=== PATIENT | female | born 1940 | race Caucasian/White ===

== ENCOUNTER → 2017-02-14 | Outpatient (CLI) | payer MEDICARE, BC, OTHER ==
--- NOTE | 2017-02-15 07:33 | MM ---
Reason for exam: screening (asymptomatic). Last mammogram was performed 1 year ago. History: Patient is postmenopausal. Took hormonal contraceptives for 6 months beginning at age 26. Took estrogen for 25 years beginning at age 39. Took progesterone for 25 years beginning at age 39. Physical Findings: A clinical breast exam by your physician is recommended on an annual basis and results should be correlated with mammographic findings. MG 3D Screening Mammo W/Cad Bilateral CC and MLO view(s) were taken. Prior study comparison: February 13, 2016, bilateral MG 3d screening mammo w/cad. February 10, 2015, bilateral MG screening mammo w CAD. There are scattered fibroglandular densities. No suspicious abnormality. ASSESSMENT: Negative, BI-RAD 1 RECOMMENDATION: Routine screening mammogram of both breasts in 1 year.
== END | disposition home or self-care (01) ==
LOC: RADMAMWWP 10:52
PROVIDERS: ATTEND Family Medicine
DX: Z12.31 Encounter for screening mammogram for malignant neoplasm of breast (principal)
CPT/HCPCS: 77063; G0202

== ENCOUNTER 2017-05-20 12:12 | Emergency (ER) | payer MEDICARE, BC, OTHER ==
--- NOTE | 2017-05-20 12:46 | ED ---
General Adult HPI - General Chief complaint: Upper Respiratory Infection Stated complaint: congestion Time Seen by Provider: 05/20/17 12:38 Source: patient Mode of arrival: ambulatory Limitations: no limitations - History of Present Illness Initial comments: Carmelina is a 76-year-old female who presents to the emergency department for evaluation of upper respiratory tract infection, fever and generalized fatigue. Patient reports that earlier this week she began feeling nasal congestion, rhinorrhea, sore throat, minimally productive cough, ear pressure. She reports that she had a subjective fever and decreased appetite. She reports that her illness was worse on and Saturday, she states that she felt so ill she did not want to get out of bed and she cannot come to hospital for evaluation. She reports that since that time she does feel that she's been improving minimally however she continues to have rhinorrhea, congestion and a minimally productive cough so she came to the emergency department for reevaluation. She reports she has not been eating or drinking well for for 5 days, for she has been most of her time in bed. She reports that she has nausea daily and this is unchanged recently, she has not had any vomiting or diarrhea. She denies any dysuria or urinary pain. She states her is very similar symptoms, however he did not seem to be as sick as she was. - Related Data Home Medications Medication Instructions Recorded Confirmed Lovastatin [Mevacor] 40 mg PO DAILY 02/08/14 05/20/17 Multivitamins, Thera [Multivitamin] 1 tab PO DAILY 02/08/14 05/20/17 Topiramate 100 mg PO BID 02/08/14 05/20/17 traMADol HCL [Ultram] 50 - 100 mg PO Q8H PRN 02/08/14 05/20/17 L.acidoph,Paracasei, B.lactis 1 cap PO DAILY 05/20/17 05/20/17 [Probiotic] Previous Rx's Medication Instructions Recorded Azithromycin 250 mg PO DAILY 4 Days #4 tablet 05/20/17 Allergies Allergy/AdvReac Type Severity Reaction Status Date / Time amitriptyline HCl Allergy "I GOT Verified 05/20/17 12:50 [From Elavil] SEVERE SHAKES ALL OVER" gatifloxacin [From Tequin] Allergy Unknown Verified 05/20/17 12:50 aspirin AdvReac UNABLE TO Verified 05/20/17 12:50 TAKE HX ULCERS TAPE AdvReac Unknown Uncoded 05/20/17 12:34 Review of Systems ROS Statement: Those systems with pertinent positive or pertinent negative responses have been documented in the HPI. ROS Other: All systems not noted in ROS Statement are negative. Constitutional: Reports: fever, chills, weight change Eyes: Reports: eye pain, eye discharge (Right eye erythematous). Denies: vision change ENT: Reports: ear pain, throat pain, congestion. Denies: dental pain, hearing loss, epistaxis Respiratory: Reports: cough. Denies: dyspnea, wheezes, hemoptysis Cardiovascular: Denies: chest pain, palpitations, dyspnea on exertion Endocrine: Reports: fatigue Gastrointestinal: Reports: nausea. Denies: abdominal pain, vomiting, diarrhea, constipation Genitourinary: Denies: urgency, dysuria Musculoskeletal: Reports: myalgia. Denies: back pain Skin: Denies: rash, lesions Neurological: Denies: headache, weakness Psychiatric: Denies: anxiety, depression Hematological/Lymphatic: Denies: easy bleeding, easy bruising Past Medical History Past Medical History: Hyperlipidemia, Osteoarthritis (OA) Additional Past Medical History / Comment(s): Mirgraine History of Any Multi-Drug Resistant Organisms: None Reported Past Surgical History: Hysterectomy, Joint Replacement, Tonsillectomy Additional Past Surgical History / Comment(s): left thumb, bilateral eye, hip Past Psychological History: No Psychological Hx Reported Smoking Status: Never smoker Past Alcohol Use History: None Reported Past Drug Use History: None Reported General Exam Limitations: no limitations General appearance: alert, other (Appears uncomfortable, nontoxic appearing) Head exam: Present: atraumatic, normocephalic Eye exam: Present: normal appearance, PERRL, EOMI, conjunctival injection ( Right eye with conjunctival injection, no purulent discharge noted). Absent: scleral icterus ENT exam: Present: mucous membranes moist, TM's normal bilaterally, other ( Posterior oropharynx injected noted to have postnasal drip) Neck exam: Present: normal inspection. Absent: lymphadenopathy Respiratory exam: Present: normal lung sounds bilaterally. Absent: respiratory distress Cardiovascular Exam: Present: regular rate, normal rhythm, tachycardia GI/Abdominal exam: Present: soft. Absent: distended Rectal exam: Present: deferred Extremities exam: Present: normal inspection Back exam: Present: normal inspection Neurological exam: Present: alert, oriented X3 Psychiatric exam: Present: anxious Skin exam: Present: warm, dry Course Vital Signs 05/20/17 05/20/17 12:28 14:00 Temperature 101.3 F H 100.6 F H Pulse Rate 117 H 90 Respiratory 18 20 Rate Blood Pressure 123/90 141/75 O2 Sat by Pulse 99 98 Oximetry Medical Decision Making - Medical Decision Making Patient was seen and evaluated Patient tachycardic and febrile - sepsis workup as well as influenza swab were ordered At this time I suspect the patient has a viral etiology of her illness Patient was reevaluated after IV fluids and medications, tachycardia resolved, fever has improved, patient reports feeling better Labs and no significant abnormalities, and is negative At this point I do feel the patient has a viral bronchitis as well as a conjunctivitis. However the patient does continue to rub her right eye and I do have concern that she will develop a bacterial conjunctivitis secondary to contamination. I will at this time prescribed a antibiotic eyedrops as well as azithromycin for possible bronchitis. This was explained to the patient who expresses significant relief. I discussed with the patient the need for oral rehydration therapy despite feeling ill as well as antipyretics for fever management. All questions pertaining to care were answered best of my ability the patient was discharged home with a diagnosis of bronchitis of viral illness. - Lab Data Result diagrams: 05/20/17 13:05 05/20/17 13:05 Lab Results 05/20/17 05/20/17 05/20/17 Range/Units 13:05 13:05 13:05 WBC 11.4 H (3.8-10.6) k/uL RBC 4.27 (3.80-5.40) m/uL Hgb 13.7 (11.4-16.0) gm/dL Hct 41.1 (34.0-46.0) % MCV 96.2 (80.0-100.0) fL MCH 32.1 (25.0-35.0) pg MCHC 33.4 (31.0-37.0) g/dL RDW 13.3 (11.5-15.5) % Plt Count 229 (150-450) k/uL Neutrophils % 81 % Lymphocytes % 11 % Monocytes % 7 % Eosinophils % 1 % Basophils % 0 % Neutrophils # 9.1 H (1.3-7.7) k/uL Lymphocytes # 1.3 (1.0-4.8) k/uL Monocytes # 0.7 (0-1.0) k/uL Eosinophils # 0.1 (0-0.7) k/uL Basophils # 0.0 (0-0.2) k/uL Sodium 141 (137-145) mmol/L Potassium 3.6 (3.5-5.1) mmol/L Chloride 105 (98-107) mmol/L Carbon Dioxide 23 (22-30) mmol/L Anion Gap 13 mmol/L BUN 12 (7-17) mg/dL Creatinine 1.10 H (0.52-1.04) mg/dL Est GFR (MDRD) Af Amer 59 (>60 ml/min/1.73 sqM) Est GFR (MDRD) Non-Af 48 (>60 ml/min/1.73 sqM) Glucose 112 H (74-99) mg/dL Plasma Lactic Acid Nate 1.2 (0.7-2.0) mmol/L Calcium 9.8 (8.4-10.2) mg/dL Total Bilirubin 0.5 (0.2-1.3) mg/dL AST 17 (14-36) U/L ALT 28 (9-52) U/L Alkaline Phosphatase 99 (38-126) U/L Total Protein 7.6 (6.3-8.2) g/dL Albumin 4.4 (3.5-5.0) g/dL Urine Color Urine Appearance (Clear) Urine pH (5.0-8.0) Ur Specific Breese (1.001-1.035) Urine Protein (Negative) Urine Glucose (UA) (Negative) Urine Ketones (Negative) Urine Blood (Negative) Urine Nitrite (Negative) Urine Bilirubin (Negative) Urine Urobilinogen (<2.0) mg/dL Ur Leukocyte Esterase (Negative) Urine RBC (0-5) /hpf Urine WBC (0-5) /hpf Ur Squamous Epith Cells (0-4) /hpf Urine Bacteria (None) /hpf Hyaline Casts (0-2) /lpf Urine Mucus (None) /hpf Influenza Type A RNA (Not Detectd) Influenza Type B (PCR) (Not Detectd) 05/20/17 05/20/17 Range/Units 13:05 14:41 WBC (3.8-10.6) k/uL RBC (3.80-5.40) m/uL Hgb (11.4-16.0) gm/dL Hct (34.0-46.0) % MCV (80.0-100.0) fL MCH (25.0-35.0) pg MCHC (31.0-37.0) g/dL RDW (11.5-15.5) % Plt Count (150-450) k/uL Neutrophils % % Lymphocytes % % Monocytes % % Eosinophils % % Basophils % % Neutrophils # (1.3-7.7) k/uL Lymphocytes # (1.0-4.8) k/uL Monocytes # (0-1.0) k/uL Eosinophils # (0-0.7) k/uL Basophils # (0-0.2) k/uL Sodium (137-145) mmol/L Potassium (3.5-5.1) mmol/L Chloride (98-107) mmol/L Carbon Dioxide (22-30) mmol/L Anion Gap mmol/L BUN (7-17) mg/dL Creatinine (0.52-1.04) mg/dL Est GFR (MDRD) Af Amer (>60 ml/min/1.73 sqM) Est GFR (MDRD) Non-Af (>60 ml/min/1.73 sqM) Glucose (74-99) mg/dL Plasma Lactic Acid Nate (0.7-2.0) mmol/L Calcium (8.4-10.2) mg/dL Total Bilirubin (0.2-1.3) mg/dL AST (14-36) U/L ALT (9-52) U/L Alkaline Phosphatase (38-126) U/L Total Protein (6.3-8.2) g/dL Albumin (3.5-5.0) g/dL Urine Color Light Yellow Urine Appearance Clear (Clear) Urine pH 6.5 (5.0-8.0) Ur Specific Breese 1.005 (1.001-1.035) Urine Protein Negative (Negative) Urine Glucose (UA) Negative (Negative) Urine Ketones Negative (Negative) Urine Blood Trace H (Negative) Urine Nitrite Negative (Negative) Urine Bilirubin Negative (Negative) Urine Urobilinogen <2.0 (<2.0) mg/dL Ur Leukocyte Esterase Large H (Negative) Urine RBC 4 (0-5) /hpf Urine WBC 72 H (0-5) /hpf Ur Squamous Epith Cells 1 (0-4) /hpf Urine Bacteria Rare H (None) /hpf Hyaline Casts 1 (0-2) /lpf Urine Mucus Rare H (None) /hpf Influenza Type A RNA Not Detected (Not Detectd) Influenza Type B (PCR) Not Detected (Not Detectd) Disposition Clinical Impression: Bronchitis Disposition: HOME SELF-CARE Condition: Good Instructions: Upper Respiratory Infection (ED) Prescriptions: Azithromycin 250 mg PO DAILY 4 Days #4 tablet Referrals: Ramana Martin DO [Primary Care Provider] - 1-2 days Time of Disposition: 14:38
[2017-05-20] MEDS: SODIUM CHLORIDE 0.9% 500 ML IV SCH ×2 (13:05→13:40)
[2017-05-20 13:22] LABS: Basophils % (A) 0 %; Eosinophils # (A) 0.1 k/uL (0-0.7); Eosinophils % (A) 1 %; HCT 41.1 % (34.0-46.0); HGB 13.7 gm/dL (11.4-16.0); Lymphocytes # (A) 1.3 k/uL (1.0-4.8); Lymphocytes % (A) 11 %; MCH 32.1 pg (25.0-35.0); MCHC 33.4 g/dL (31.0-37.0); MCV 96.2 fL (80.0-100.0); Mean Platelet Volume 7.3; Monocytes # (A) 0.7 k/uL (0-1.0); Monocytes % (A) 7 %; Neutrophils # (A) 9.1 k/uL (1.3-7.7); Neutrophils % (A) 81 %; Platelet Count 229 k/uL (150-450); RBC 4.27 m/uL (3.80-5.40); RDW 13.3 % (11.5-15.5); WBC 11.4 k/uL (3.8-10.6)
--- NOTE | 2017-05-20 13:34 | XR ---
EXAMINATION TYPE: XR chest 2V DATE OF EXAM: 05/20/2017 COMPARISON: NONE HISTORY: Fever TECHNIQUE: Frontal and lateral views of the chest are obtained. FINDINGS: Heart and mediastinum are normal. There is a hiatal hernia. Lungs are clear. There is no p leural effusion. There is spurring in the mid and lower thoracic spine. There are chest leads. IMPRESSION: Hiatal hernia. No active cardiopulmonary disease.
[2017-05-20 13:37] LABS: Albumin 4.4 g/dL (3.5-5.0); Calcium 9.8 mg/dL (8.4-10.2); Potassium 3.6 mmol/L (3.5-5.1); Total Bilirubin 0.5 mg/dL (0.2-1.3); Total Protein 7.6 g/dL (6.3-8.2)
[2017-05-20] MEDS ORDERED: POLYMYXIN B-TRIMETHOPRIM (10,000-1) OPHTH DROPS 10 ML BTL RIGHT EYE STA (14:36)
[2017-05-20] MEDS ORDERED: AZITHROMYCIN 500 MG TAB PO STA (14:37)
[2017-05-20 14:54] LABS: Appearance,Urine Clear (Clear); Bacteria,Urine Rare /hpf; Bilirubin,Urine Negative (Negative); Blood,Urine Trace (Negative); Color,Urine Light Yellow; Glucose,Urine (UA) Negative (Negative); Hyaline Casts,Urine 1 /lpf (0-2); Ketones,Urine Negative (Negative); Leukocyte Esterase,Urine Large (Negative); Mucus,Urine Rare /hpf; Nitrite,Urine Negative (Negative); PH, Urine 6.5 (5.0-8.0); Protein,Urine Negative (Negative); RBC,Urine 4 /hpf (0-5); Specific Gravity,Urine 1.005 (1.001-1.035); Squamous Epithelial Cell,Urine 1 /hpf (0-4); Urobilinogen,Urine <2.0 mg/dL (<2.0); WBC,Urine 72 /hpf (0-5)
[2017-05-20 15:19] VITALS: BP 128/74; PULSE 92; RESP 18; TEMP 100
== END 2017-05-20 15:13 | disposition home or self-care (01) ==
LOC: EC 12:12
DX: J40 Bronchitis, not specified as acute or chronic (principal); F41.9 Anxiety disorder, unspecified; H57.8 Other specified disorders of eye and adnexa; R00.0 Tachycardia, unspecified; J34.89 Other specified disorders of nose and nasal sinuses; R11.0 Nausea; E78.5 Hyperlipidemia, unspecified; Z79.899 Other long term (current) drug therapy; Z88.1 Allergy status to other antibiotic agents; Z88.6 Allergy status to analgesic agent; Z88.8 Allergy status to other drugs, medicaments and biological substances; Z91.09 Other allergy status, other than to drugs and biological substances; Z86.69 Personal history of other diseases of the nervous system and sense organs; Z98.890 Other specified postprocedural states
CPT/HCPCS: 36415; 71046; 80053; 81001; 83605; 85025; 87040; 87086; 87502; 93005; 96360; 99284

== ENCOUNTER → 2017-06-10 | Outpatient (CLI) | payer MEDICARE, BC, OTHER ==
--- NOTE | 2017-06-10 12:28 | FL ---
MODIFIED SWALLOW / DEGLUTITION STUDY DATE OF EXAM: 06/10/2017 CLINICAL HISTORY: 76-year-old female Dysphagia. Patient reports feeling sick to stomach and nauseous. TECHNIQUE: Deglutition study is performed utilizing thin liquid barium, honey and nectar thick liqui d barium, barium thick applesauce, and barium coated cracker. Total fluoroscopy time: 2.11 minutes. Total images: None saved, real-time fluoroscopy support was provided to speech pathology. COMPARISON: None. FINDINGS: The oral and pharyngeal phases show satisfactory initiation and propagation with all modalities teste d. Normal mastication is seen with solid modalities tested. There is no evidence of penetration or aspiration with any modality tested. However, there is poor clearance of the swallowed bolus from the cervical esophagus with intermittent intraesophageal reflux. Brief frontal fluoroscopy shows the patient's moderate sized hiatal hernia a nd poor propulsion of the swallowed bolus. No significant pharyngeal residue was appreciated. IMPRESSION: 1. Normal deglutition study. 2. However, there is poor clearance of the swallowed bolus from the cervical esophagus with intermitt ent intraesophageal reflux. While findings may relate to presbyesophagus, consider EGD or esophagram to exclude any abnormal narrowing or mucosal lesion contributing to this finding. Please refer to spe ech therapist notes for further details if necessary.
== END | disposition home or self-care (01) ==
LOC: RADFLMAIN 11:18
PROVIDERS: ATTEND Family Medicine
DX: K21.9 Gastro-esophageal reflux disease without esophagitis (principal)
CPT/HCPCS: 74230

== ENCOUNTER → 2017-06-13 | Outpatient (CLI) | payer MEDICARE, BC, OTHER ==
--- NOTE | 2017-06-13 15:59 | NM ---
EXAMINATION TYPE: NM hepatobiliary w EF DATE OF EXAM: 06/13/2017 COMPARISON: NONE HISTORY: Nausea pain TECHNIQUE: After the intravenous administration of 4.9 mCi Tc 99m Mebrofenin hepatobiliary scintigrap hy is performed. Immediate images post injection. FINDINGS: There is satisfactory initial accumulation of tracer by the liver. The gallbladder is visualized wit hin 60 minutes. The small bowel activity is noted within 20 minutes. At one hour 8 ounces of oral e nsure plus is given to mimic CCK and gallbladder ejection fraction is calculated at 75 %, in the norm al range. Therefore there is no scintigraphic evidence of cystic or common bile duct obstruction to suggest acute cholecystitis or gallbladder dyskinesia. IMPRESSION: Exam is within normal limits.
== END | disposition home or self-care (01) ==
LOC: RADNMMAIN 13:22
PROVIDERS: ATTEND Family Medicine
DX: R11.0 Nausea (principal)
CPT/HCPCS: 78226; A9537

== ENCOUNTER → 2017-06-20 | Outpatient (CLI) | payer MEDICARE, BC, OTHER ==
--- NOTE | 2017-06-20 11:12 | FL ---
EXAMINATION TYPE: FL barium swallow DATE OF EXAM: 06/20/2017 CLINICAL HISTORY: Dysphagia and nausea for one to 2 years with history of hiatal hernia. TECHNIQUE: A double contrast esophagram is performed utilizing air and barium. A total of 1.2 minut es of fluoroscopic time was utilized during procedure. 108 images were saved. COMPARISON: None FINDINGS: The esophagus shows normal motility and emptying into the partially intrathoracic stomach ( approximately 50%). No stricture is identified. Mild gastroesophageal reflux was seen during real justin e performance of this study although the gravity independent and dependent portions of the examinatio n from residual contrast within the partial intrathoracic stomach. IMPRESSION: Partial intrathoracic stomach of approximately 50% resulting in mild gastroesophageal ref lux from delayed propulsion of contrast through the hiatal hernia to the remainder of the stomach.
== END | disposition home or self-care (01) ==
LOC: RADFLWHC 10:09
PROVIDERS: ATTEND Family Medicine
DX: K44.9 Diaphragmatic hernia without obstruction or gangrene (principal); K21.9 Gastro-esophageal reflux disease without esophagitis
CPT/HCPCS: 74220

== ENCOUNTER → 2018-02-17 | Outpatient (CLI) | payer MEDICARE, BC, OTHER ==
--- NOTE | 2018-02-18 09:48 | MM ---
Reason for exam: screening (asymptomatic). Last mammogram was performed 1 year ago. History: Patient is postmenopausal. Took hormonal contraceptives for 6 months beginning at age 26. Took estrogen for 25 years beginning at age 39. Took progesterone for 25 years beginning at age 39. Physical Findings: A clinical breast exam by your physician is recommended on an annual basis and results should be correlated with mammographic findings. MG 3D Screening Mammo W/Cad Bilateral CC and MLO view(s) were taken. Prior study comparison: February 14, 2017, bilateral MG 3d screening mammo w/cad. February 13, 2016, bilateral MG 3d screening mammo w/cad. There are scattered fibroglandular densities. Finding: There is a 6 mm equal density (isodense) mass in the upper outer quadrant of the right breast. ASSESSMENT: Incomplete: need additional imaging evaluation, BI-RAD 0 RECOMMENDATION: Special view mammogram of the right breast. If lesion persists on supplemental views, image directed ultrasound is recommended. [facility] will attempt to contact patient to return for supplemental views and ultrasound if indicated.
== END | disposition home or self-care (01) ==
LOC: RADMAMWWP 10:56
PROVIDERS: ATTEND Family Medicine
DX: Z12.31 Encounter for screening mammogram for malignant neoplasm of breast (principal)
CPT/HCPCS: 77063; 77067

== ENCOUNTER → 2018-02-21 | Outpatient (CLI) | payer MEDICARE, BC, OTHER ==
--- NOTE | 2018-02-21 14:46 | MM ---
Reason for exam: additional evaluation requested from abnormal screening. Last mammogram was performed less than 1 month ago. History: Patient is postmenopausal. Took hormonal contraceptives for 6 months beginning at age 26. Took estrogen for 25 years beginning at age 39. Took progesterone for 25 years beginning at age 39. Physical Findings: Nurse did not find any significant physical abnormalities on exam. MG 3D Work Up W/Cad RT Spot compression CC, spot compression MLO, and ML view(s) were taken of the right breast. Prior study comparison: February 17, 2018, bilateral MG 3d screening mammo w/cad. February 14, 2017, bilateral MG 3d screening mammo w/cad. There are scattered fibroglandular densities. No definate mass/distortion. These results were verbally communicated with the patient and result sheet given to the patient on 02/21/18. ASSESSMENT: Probably benign, BI-RAD 3 RECOMMENDATION: Follow-up diagnostic mammogram of the right breast in 6 months.
== END ==
LOC: RADMAMWWP 13:43
PROVIDERS: ATTEND Family Medicine
DX: R92.8 Other abnormal and inconclusive findings on diagnostic imaging of breast (principal)
CPT/HCPCS: 77065; G0279; 77061

== ENCOUNTER → 2018-09-30 | Outpatient (CLI) | payer MEDICARE, BC, OTHER ==
--- NOTE | 2018-09-30 12:53 | US ---
EXAMINATION TYPE: US bladder DATE OF EXAM: 09/30/2018 COMPARISON: 12/27/2014 CLINICAL HISTORY: 78-year-old female N18.3 CKD Stage 3. Patient stated that she does not fully empty bladder TECHNIQUE: Multiple sonographic images of the bladder are obtained. FINDINGS: No gross abnormality of the initially partially distended bladder. Both ureteral jets are visualized of the right jet was slightly weaker. Post Void Residual Volume: 11.0 mL (normal <50 mL). This is in comparison to 9 mL residual volume in 2014. IMPRESSION: Post void bladder volume of 11 mL is within acceptable limits. No sonographic evidence for urinary re tention. Relatively similar to 2014.
--- NOTE | 2018-09-30 13:37 | MM ---
Reason for exam: additional evaluation requested from prior study. Last mammogram was performed 7 months ago. History: Patient is postmenopausal. Took hormonal contraceptives for 6 months beginning at age 26. Took estrogen for 25 years beginning at age 39. Took progesterone for 25 years beginning at age 39. Physical Findings: Nurse did not find any significant physical abnormalities on exam. MG 3D Diag Mammo W/Cad RT CC and MLO view(s) were taken of the right breast. Prior study comparison: February 21, 2018, right breast MG 3d work up w/cad RT. February 17, 2018, bilateral MG 3d screening mammo w/cad. The breast tissue is heterogeneously dense. This may lower the sensitivity of mammography. The previously seen abnormality resolves on additional views and appears as fibroglandular tissue compatible with summation. No suspicious abnormality. These results were verbally communicated with the patient and result sheet given to the patient on 09/30/18. ASSESSMENT: Benign, BI-RAD 2 RECOMMENDATION: Return to routine screening mammogram schedule for both breasts. Back on schedule for February 2019.
== END | disposition home or self-care (01) ==
LOC: RADUSWWP 12:07
PROVIDERS: ATTEND Family Medicine
DX: R92.8 Other abnormal and inconclusive findings on diagnostic imaging of breast (principal); N18.3 Chronic kidney disease, stage 3 (moderate)
CPT/HCPCS: 77065; 76857; G0279; 77061

== ENCOUNTER → 2019-03-12 | Outpatient (CLI) | payer MEDICARE, BC, OTHER ==
--- NOTE | 2019-03-13 13:24 | MM ---
Reason for exam: screening (asymptomatic). Last mammogram was performed 5 months ago. History: Patient is postmenopausal. Took hormonal contraceptives for 6 months beginning at age 26. Took estrogen for 25 years beginning at age 39. Took progesterone for 25 years beginning at age 39. Physical Findings: A clinical breast exam by your physician is recommended on an annual basis and results should be correlated with mammographic findings. MG 3D Screening Mammo W/Cad Bilateral CC and MLO view(s) were taken. Prior study comparison: September 30, 2018, right breast MG 3d diag mammo w/cad RT. February 21, 2018, right breast MG 3d work up w/cad RT. There are scattered fibroglandular densities. There are benign appearing round linear calcifications in the right breast. There is no discrete abnormality. ASSESSMENT: Benign, BI-RAD 2 RECOMMENDATION: Routine screening mammogram of both breasts in 1 year.
== END | disposition home or self-care (01) ==
LOC: RADMAMWWP 12:38
PROVIDERS: ATTEND Family Medicine
DX: Z12.31 Encounter for screening mammogram for malignant neoplasm of breast (principal)
CPT/HCPCS: 77063; 77067

== ENCOUNTER → 2019-07-09 | Outpatient (CLI) | payer MEDICARE, BC, OTHER ==
[2019-07-09 15:01] LABS: HGB 12.7 gm/dL (11.4-16.0); MCH 31.4 pg (25.0-35.0); MCHC 31.7 g/dL (31.0-37.0); Mean Platelet Volume 7.3; Platelet Count 198 k/uL (150-450); RBC 4.04 m/uL (3.80-5.40); RDW 13.1 % (11.5-15.5)
[2019-07-09 15:13] LABS: Albumin 4.1 g/dL (3.5-5.0); Calcium 9.6 mg/dL (8.4-10.2); Potassium 4.1 mmol/L (3.5-5.1); Total Bilirubin 0.4 mg/dL (0.2-1.3); Total Protein 6.8 g/dL (6.3-8.2)
[2019-07-09 16:09] LABS: INR 0.9 (<1.2); Partial Thromboplastin Time 22.2 sec (22.0-30.0); Prothrombin Time 9.9 sec (9.0-12.0)
== END | disposition home or self-care (01) ==
LOC: LABPAT 14:15
PROVIDERS: ATTEND Orthopaedic Surgery
DX: Z01.812 Encounter for preprocedural laboratory examination (principal); M16.11 Unilateral primary osteoarthritis, right hip; Z51.81 Encounter for therapeutic drug level monitoring
CPT/HCPCS: 80053; 85027; 85610; 85730; 87070

== ENCOUNTER 2019-07-20 07:45 | Day surgery (SDC) | payer MEDICARE, OTHER ==
[2019-07-13 13:13] VITALS: BMI 25.1
[~2019-07-20 07:45] MED LIST: ACETAMINOPHEN TAB 500 MG TAB PO ONE; GABAPENTIN 300 MG CAP PO ONE; LACTATED RINGERS 1,000 ML IV SCH; MELOXICAM 7.5 MG TAB PO ONE; ONDANSETRON 4 MG/2 ML VIAL IVP ONE; ROPIVACAINE 246.25 MG, EPINEPHrine 0.5 MG, KETOROLAC 30 MG, cloNIDine HCL/PF 80 MCG, WA... MISCELLANE ONE; TRANEXAMIC ACID 1,000 MG in SODIUM CHLORIDE 0.9% 100 ML IVPB ONE
[2019-07-20] MEDS ORDERED: LACTATED RINGERS 1,000 ML IV ONE ×2 (08:06→10:48)
[2019-07-20] MEDS ORDERED: LACTATED RINGERS 1,000 ML BAG IV ONE (09:12)
[2019-07-20] MEDS ORDERED: ROCURONIUM BROMIDE 10 MG/ML 5 ML VIAL IV ONE (09:12)
[2019-07-20] MEDS ORDERED: LIDOCAINE 1% INJ 10MG/ML (20 ML MDV) ONE (09:12)
[2019-07-20] MEDS ORDERED: fentaNYL (PF) 50 MCG/ML 2 ML AMP ONE (09:12)
[2019-07-20] MEDS ORDERED: TRANEXAMIC ACID 1,000 MG/10 ML VIAL ONE (09:12)
[2019-07-20] MEDS ORDERED: GLYCOPYRROLATE 0.2 MG/ML 2 ML VIAL ONE (09:12)
[2019-07-20] MEDS ORDERED: SUCCINYLCHOLINE CHLORIDE 100 MG/5 ML SYR IV ONE (09:12)
[2019-07-20] MEDS ORDERED: PROPOFOL 10 MG/ML 20 ML VIAL IV ONE (09:12)
[2019-07-20] MEDS ORDERED: HEPARIN SODIUM,PORCINE 10,000 UNIT/ML 1 ML VIAL ONE (09:12)
[2019-07-20] MEDS ORDERED: MIDAZOLAM 2 MG/2 ML VIAL ONE (09:12)
[2019-07-20] MEDS ORDERED: NEOSTIGMINE 1 MG/ML 10 ML VIAL ONE (09:12)
[2019-07-20] MEDS ORDERED: SODIUM CHLORIDE 0.9% 100 ML BAG ONE (09:12)
[2019-07-20] MEDS ORDERED: ceFAZolin 3,000 MG in SODIUM CHLORIDE 0.9% IRRIGATIO 3,000 ML IRRIGATION ONE (09:17)
--- NOTE | 2019-07-20 10:23 | P.OP ---
Date of Procedure: 07/20/19 Preoperative Diagnosis: Severe osteoarthritis right hip Postoperative Diagnosis: Severe osteoarthritis right hip Procedure(s) Performed: Right total hip arthroplasty with a direct anterior approach Implants: Ogden [employer] nephew Polarstem size 3 standard [employer]hew R3, 3 hole acetabular shell, 52 mm [employer]hew reflection 6.5 mm cancellus screw, 20 mm 2 [employer] R3, XLPE 20 acetabular liner [employer]hew Oxinium femoral head 36 m, +4 All components were press-fit. The articulation is Oxinium on polyethylene. Anesthesia: spinal Surgeon: Beau Martins Teaching Music Lessons #1: Corinne Carvajal Estimated Blood Loss (ml): 400 (181 mL returned with Cell Saver) Pathology: other (Femoral head) Condition: stable Disposition: PACU Indications for Procedure: After failure of conservative treatment we discussed the surgical and nonsurgical treatment options at length. Patient wishes to proceed with a total hip arthroplasty with a direct anterior approach. Complications specific to this procedure were discussed at length, including but not limited to infection, leg length discrepancy, dislocation, and nerve injury. Patient is aware of all these complications and informed consent was obtained Operative Findings: The operative findings are consistent with severe osteoarthritis of the right hip Description of Procedure: Patient was seen and evaluated in the preoperative area, consent was reviewed, and the surgical site was marked with a skin marker. Patient was then brought to the operating room and given prophylactic antibiotics intravenously. 1 g of Tranexamic acid was also given. A spinal anesthetic was administered by the anesthesia department. The patient was then placed on the [place] table with the bony prominences well-padded. The hip area was then prepped and draped in usual sterile fashion. A universal timeout was then performed, which confirmed the patient's name, surgical site, ALLERGIES, and procedure being performed. Next the incision site was located at 1 cm distal and 1 cm lateral to the anterior superior iliac spine. The skin and subcutaneous tissues were sharply incised. Incision was carefully dissected down to the fascia overlying the tensor fascia vickey muscle. This fascia was then incised in line with the incision. Next, using blunt finger dissection, the tensor fascia vickey muscle was dissected off its investing fascia. The muscle was then carefully retracted laterally with a cobra retractor over the lateral neck of the femur. Next, the circumflex vessels were identified and cauterized using the AquaMantis device. The anterior hip capsule was then exposed. The capsule was then opened and an inverted T fashion. Cobra retractors were then placed intracapsularly. The proximal femur was then vis ualized. The femoral neck was then osteotomized appropriate level above the lesser trochanter. Small amount of traction was placed with the [place] table. A small wedge of bone was then removed from the remaining femoral head. Next, using a corkscrew femoral head was easily removed from the acetabulum. On gross visual inspection, the femoral head had complete loss of articular cartilage in multi ple periarticular osteophytes. Attention was then turned to the acetabulum. the acetabulum was exposed and any remaining labrum was excised. Sequential reaming of the acetabulum was performed using fluoroscopic guidance. When the appropriate size was reached, a trial was then placed. The position and fit of the trial was checked with fluoroscopy. The trial was then removed. Then, using fluoroscopic guidance, the final implant was impacted at 20 of anteversion and 40 of abduction, and fully seated in the acetabulum. 2 screws were then placed in the acetabulum. Again fluoroscopy was used to check position of the screws. Next, the liner was then impacted, with a 20 elevated liner located in the anterior superior quadrant. Component locking was confirmed. Attention was then directed to the femur. With the aid of the [place] table, the femur was externally rotated to approximately 130, extended, and abducted under the opposite leg. A side hook was then placed under the proximal femur, and the side hook elevator was used to elevate the proximal femur. Retractors were then placed. A capsular release was performed, as well as a release of the conjoined tendon, which afforded excellent visualization of the proximal femur. Next, a box osteotome was used to lateralize the proximal femur. A certified shorthand reporter was then used to locate the femoral canal. Sequential broaching was then performed with appropriate size which afforded excellent fixation in the proximal femur. A trial was then placed with appropriate head and neck, and the hip was gently reduced with the aid of the [place] table. Fluoroscopy was then used to check position of the components, as well as to ensure equal leg lengths. The hip was then gently dislocated and the trials were then removed. Final implants were then impacted and the hip was again reduced. Final fluoroscopic x-rays confirmed that the components were in anatomic position, as well as equal leg lengths. The hip was also taken through range of motion, and found to be stable. The hip was then copiously irrigated with antibiotic solution with pulsatile lavage. The hip was then irrigated with Irrisept solution. The soft tissues were then injected with a ropivacaine solution, which consisted of 246.25 mg of ropivacaine, 0.5 mg of epinephrine, 30 mg of Toradol, 80 g of clonidine, and 48.45 mL of sterile water, for a total of 100 mL of fluid injected. A second dose of 1 g of Tranexamic acid was also given. the fascia was then closed with 2-0 strata fix suture. The subcutaneous tissue was closed with 3-0 Vicryl. The subcuticular tissue was closed with 3-0 strata fix suture. The skin was then closed with Dermabond glue and a sterile silver dressing. The patient was then transferred to the recovery room in stable condi tion. The assistant operations manager SHADIA Dc was required due to the complexity of surgery, and the need for skilled surgical technology instructor for positioning, draping, exposure, retraction, and closure of the wound.
--- NOTE | 2019-07-20 10:44 | FL ---
EXAMINATION TYPE: FL guidance operating room, XR Hip Limited RT DATE OF EXAM: 07/20/2019 CLINICAL HISTORY: Right hip pain and osteoarthritis. TECHNIQUE: Fluoroscopy. Limited views right hip. COMPARISON: None. FINDINGS: Fluoroscopic guidance was provided during hip replacement procedure performed by Dr. Lance hyde. A total of 44 seconds of fluoroscopic time was utilized during the procedure and 2 spot images are saved to PACS. 2 intraoperative images right hip show metallic hardware from total arthroplasty satisfactory in posi tion on frontal view. IMPRESSION: As Above.
[2019-07-20] MEDS ORDERED: NALOXONE 0.4 MG/ML 1 ML VIAL IV PRN (10:58)
[2019-07-20] MEDS ORDERED: MAGNESIUM HYDROXIDE 2,400 MG/10 ML CUP PO PRN (10:58)
[2019-07-20] MEDS ORDERED: ACETAMINOPHEN TAB 325 MG TAB PO PRN (10:58)
[2019-07-20] MEDS ORDERED: HYDROcodone/APAP 5-325MG 1 EACH TAB PO PRN (10:58)
[2019-07-20] MEDS ORDERED: ONDANSETRON 4 MG/2 ML VIAL IVP PRN (10:58)
[2019-07-20] MEDS ORDERED: HYDROmorphone 0.5 MG/0.5 ML SYRINGE IVP PRN ×2 (10:58)
[2019-07-20] MEDS: HYDROmorphone 0.5 MG/0.5 ML SYRINGE IVP PRN ×4 (11:04→21:02)
[2019-07-20] MEDS ORDERED: diphenhydrAMINE 50 MG/ML 1 ML VIAL IVP ONE (11:12)
--- NOTE | 2019-07-20 11:55 | XR ---
EXAMINATION TYPE: XR Hip Limited RT DATE OF EXAM: 07/20/2019 CLINICAL HISTORY: Right hip pain and osteoarthritis. TECHNIQUE: Single AP portable view of right hip is obtained immediately postoperatively. COMPARISON: None. FINDINGS: Metallic hardware from right hip arthroplasty is seen and appears satisfactory in alignment and position. There is evidence of recent surgery with subcutaneous gas noted laterally. IMPRESSION: Metallic hardware from right hip arthroplasty is satisfactory in position.
[2019-07-20] MEDS: LACTATED RINGERS 1,000 ML IV SCH ×2 (16:06→21:39)
[2019-07-20] MEDS: TOPIRAMATE 100 MG TAB PO SCH (20:14)
[2019-07-20] MEDS: NITROFURANTOIN MONOHYD/M-CRYST 100 MG CAP PO SCH (20:14)
[2019-07-20] MEDS ORDERED: SENNOSIDES-DOCUSATE SODIUM 1 EACH TAB PO SCH (21:00)
[2019-07-20] MEDS ORDERED: ATORVASTATIN 10 MG TAB PO SCH (21:00)
[2019-07-20] MEDS ORDERED: TEMAZEPAM 15 MG CAP PO PRN (21:00)
--- NOTE | 2019-07-21 | CONS ---
CONSULTATION DATE OF SERVICE: 07/20/2019 REASON FOR CONSULTATION: Advice regarding hyperlipidemia and other medical issues, requested by Dr. Martins. HISTORY OF PRESENT ILLNESS: This 78-year-old woman with a past medical history of multiple medical problems, including history of hearing defects, hyperlipidemia, history of DJD, being followed by Dr. Martin in the outpatient setting, underwent right total hip joint arthroplasty for severe DJD by Dr. Martins. The patient is slightly drowsy after surgery; only giving a sketchy history. Most of the history is taken from my discussion with staff at the bedside review of the chart. There is no history of any fever, rigor or chills. No history of chest pain, palpitations hematochezia. Occasional cough is reported at this time. PAST MEDICAL HISTORY: History of hyperlipidemia, history of DJD, history of back surgery, hysterectomy. HOME MEDICATIONS: 1. Nitrofurantoin 100 mg p.o. b.i.d. 2. Mevacor 40 mg at bedtime. 3. Ultram p.r.n. 4. Topamax 100 mg p.o. b.i.d. 5. Multivitamins one p.o. daily. 6. Vitamin K with vitamin D3, local application. 7. Probiotic 1 p.o. daily. 8. Fish oil daily. 9. Senokot-S 1 tablet p.o. b.i.d. 10.Xarelto 10 mg p.o. daily. 11.[place]issa 1-2 tabs q.4 to 6 p.r.n. ALLERGIES: AMITRIPTYLINE, TEQUIN, ASPIRIN. TAPE. FAMILY HISTORY: History of cancer in the family. SOCIAL HISTORY: No history of smoking. No history of alcohol intake. REVIEW OF SYSTEMS: ENT: No diminished hearing. No diminished vision. CARDIOVASCULAR SYSTEM: No angina, palpitations. RESPIRATORY SYSTEM: As mentioned earlier. GI: As mentioned earlier. : No dysuria or retention. NERVOUS SYSTEM: No numbness, weakness. ALLERGY/IMMUNOLOGY: No asthma, hayfever. MUSCULOSKELETAL: As mentioned earlier. HEMATOLOGY/ONCOLOGY: No history of anemia. ENDOCRINE: No history of diabetes, hypothyroidism. CONSTITUTIONAL: As mentioned earlier. DERMATOLOGY: Negative. RHEUMATOLOGY: Negative. PSYCHIATRY: As mentioned earlier. PHYSICAL EXAMINATION: Patient alert and oriented x3. Pulse is 107, blood pressure 87/56, respiration 18, temperature 97.5, pulse ox 98% on room air. HEENT: Conjunctivae normal. Oral mucosa moist. NECK: No jugular venous distention. No carotid bruit. No lymph node enlargement. CARDIOVASCULAR SYSTEM: S1, S2 muffled. RESPIRATORY SYSTEM: Breath sounds diminished at the bases. No rhonchi. No crackles. ABDOMEN: Soft, non-tender. No mass palpable. LEGS: Status post right total hip joint arthroplasty. NERVOUS SYSTEM: Higher functions as mentioned earlier. Moves all 4 limbs. No focal motor or sensory deficit. LYMPHATICS: No lymph node palpable in neck, axillae or groin. SKIN: No ulcer, rash, bleeding. JOINTS: As mentioned earlier. LABS: The preoperative labs are hematology, CBC within normal limits. Otherwise, coags are normal. Chemistry panel done prior to surgery showed the electrolyte are also within normal limits. Creatinine was 1.05. ASSESSMENT: 1. Status post right total hip joint arthroplasty for severe degenerative joint disease. 2. Increased creatinine previously. 3. Relative hypotension. 4. Hyperlipidemia. 5. History of hard of hearing. 6. History of degenerative joint disease. 7. History of colon polyps. 8. Migraine. 9. Back surgery. 10.History of degenerative joint disease. 11.History of rectocele repair. 12.FULL CODE. RECOMMENDATIONS AND DISCUSSION: In this 78-year-old woman who presented after surgery, at this time I recommend to continue the current medications, continue with symptomatic treatment. Repeat labs in the morning. I would also recommend continuing with IV fluids. Otherwise, we will monitor the patient closely. Symptomatic treatment. DVT prophylaxis. Proton pump inhibitors. The patient may be asked to follow up with Dr. Martin closely after discharge. Thank you, Dr. Martins, for letting us participate in the care of this patient. MMODL / IJN: [id number] / [facility]
[2019-07-21] MEDS: HYDROcodone/APAP 5-325MG 1 EACH TAB PO PRN ×2 (00:07→07:43)
[2019-07-21] MEDS ORDERED: PANTOPRAZOLE 40 MG TABLET PO SCH (07:30)
[2019-07-21] MEDS: NITROFURANTOIN MONOHYD/M-CRYST 100 MG CAP PO SCH (07:43)
[2019-07-21] MEDS: TOPIRAMATE 100 MG TAB PO SCH (07:43)
[2019-07-21 08:02] VITALS: BP 118/69; PULSE 99; RESP 17; TEMP 98.3
[2019-07-21 08:24] LABS: Calcium 8.9 mg/dL (8.4-10.2); Potassium 3.9 mmol/L (3.5-5.1)
[2019-07-21 08:35] LABS: Basophils % (A) 0 %; Eosinophils # (A) 0.1 k/uL (0-0.7); Eosinophils % (A) 1 %; HCT 28.9 % (34.0-46.0); Lymphocytes # (A) 1.6 k/uL (1.0-4.8); Lymphocytes % (A) 19 %; MCH 31.7 pg (25.0-35.0); MCHC 31.9 g/dL (31.0-37.0); MCV 99.2 fL (80.0-100.0); Mean Platelet Volume 7.9; Monocytes # (A) 0.5 k/uL (0-1.0); Monocytes % (A) 6 %; Neutrophils # (A) 6.4 k/uL (1.3-7.7); Neutrophils % (A) 74 %; Platelet Count 180 k/uL (150-450); RBC 2.92 m/uL (3.80-5.40); RDW 12.9 % (11.5-15.5); WBC 8.6 k/uL (3.8-10.6)
[2019-07-21 08:37] LABS: HGB 9.2 gm/dL (11.4-16.0)
[2019-07-21] MEDS ORDERED: NON FORMULARY DRUG (Fish Oil/Dha/Epa [Fish Oil 1,200 Mg Fish Oil] 1 EACH) PO SCH (09:00)
[2019-07-21] MEDS ORDERED: LACTOBACILLUS ACIDOPH & BULGAR 1 EACH PACKET PO SCH (09:00)
[2019-07-21] MEDS ORDERED: [UNRECOGNIZED DRUG - MIXTURE] PO SCH (09:00)
[2019-07-21] MEDS ORDERED: RIVAROXABAN 10 MG TAB PO SCH (09:00)
[2019-07-21] MEDS ORDERED: MULTIVITAMINS, THERA 1 EACH TAB PO SCH (09:00)
--- NOTE | 2019-07-21 13:50 | P.DS ---
Providers Expected date of discharge: 07/21/19 Attending physician: Beau Martins Consults: 07/20/19 10:58 Consult Physician Routine Consulting Provider: Ming Garcia Consult Reason/Comments: Medical management Do you want consulting provider notified?: Yes Primary care physician: [facility] Hospital Course: This is a 78-year-old female who was last seen in our office with complaint of continued right hip pain. The patient has a known history of degenerative arthritis of the right hip and presents to discuss surgical options. After discussion and consideration the patient elects to proceed with total right hip arthroplasty. She is seen preoperatively by her family physician and cleared for surgery. The patient is admitted to [facility] for total right hip arthr oplasty. The procedure is performed without complication or sequelae. The patient is doing well on postoperative day #1. Vital signs and postoperative labs are stable. On exam, patient is sitting in bedside chair in no acute distress. She is alert and orientated x3. On inspection of the right hip, there is a clean, dry, intact surgical dressing in place. Mild ecchymosis surrounding the dressing. There is no drainage on the dressing. Patient has good strength and motion of the right ankle. No pain on palpation of the calf. The right lower extremity is warm and well-perfused with brisk capillary refill distally. Dorsalis pedis pulse palpable. Motor and sensory function appeared intact of the right lower extremity. Vital signs stable. The patient is discharged to home today with home health services, pending medical clearance, in good condition. Please see discharge orders. Please refer to the med rec for accurate list of medications. Patient Condition at Discharge: Fair Plan - Discharge Summary Discharge Rx Participant: Yes New Discharge Prescriptions: New HYDROcodone/APAP 5-325MG [[place] 5-325] 1 - 2 each PO Q4-6H PRN #50 tab PRN Reason: Pain Sennosides-Docusate Sodium [Senokot-S] 1 tab PO BID #60 tablet Rivaroxaban [Xarelto] 10 mg PO DAILY #30 tab Ferrous Sulfate [Feosol] 325 mg PO BID #60 tab Continue Multivitamins, Thera [Multivitamin (formulary)] 1 tab PO DAILY Topiramate 100 mg PO BID Lovastatin [Mevacor] 40 mg PO HS L.acidoph,Paracasei, B.lactis [Probiotic] 1 cap PO DAILY Liquidvitamin D3 And Vitamin K 1 applic PO DAILY Fish Oil/Dha/Epa [Fish Oil 1,200 mg Fish Oil] 1 each PO DAILY Nitrofurantoin Monohyd/M-Cryst [Macrobid] 100 mg PO Q12HR Discontinued traMADol HCL [Ultram] 50 - 100 mg PO Q8H PRN PRN Reason: Pain Discharge Medication List Lovastatin [Mevacor] 40 mg PO HS 02/08/14 [History] Multivitamins, Thera [Multivitamin (formulary)] 1 tab PO DAILY 02/08/14 [History] Topiramate 100 mg PO BID 02/08/14 [History] L.acidoph,Paracasei, B.lactis [Probiotic] 1 cap PO DAILY 05/20/17 [History] Fish Oil/Dha/Epa [Fish Oil 1,200 mg Fish Oil] 1 each PO DAILY 01/13/18 [History] Liquidvitamin D3 And Vitamin K 1 applic PO DAILY 01/13/18 [History] HYDROcodone/APAP 5-325MG [[place] 5-325] 1 - 2 each PO Q4-6H PRN #50 tab 07/20/19 [Rx] Nitrofurantoin Monohyd/M-Cryst [Macrobid] 100 mg PO Q12HR 07/20/19 [History] Rivaroxaban [Xarelto] 10 mg PO DAILY #30 tab 07/20/19 [Rx] Sennosides-Docusate Sodium [Senokot-S] 1 tab PO BID #60 tablet 07/20/19 [Rx] Ferrous Sulfate [Feosol] 325 mg PO BID #60 tab 07/21/19 [Rx] Follow up Appointment(s)/Referral(s): Ramana Martin DO [Primary Care Provider] - 08/04/19 1:20 pm [facility], [NON-STAFF] - Beau Martins DO [Doctor of Osteopathic Medicine] - 07/31/19 8:30 am Patient Instructions/Handouts: Total Hip Replacement (DC) Activity/Diet/Wound Care/Special Instructions: Weight bearing as tolerated with walker Can shower in 2 days postop Take medications as prescribed Leave Optifoam in place for 10 days Discharge Disposition: HOME WITH HOME HEALTH SERVICES
--- NOTE | 2019-07-22 04:58 | PN ---
PROGRESS NOTE DATE OF SERVICE: 07/21/2019 PRESENTING COMPLAINT: Right hip surgery. INTERVAL HISTORY: Patient is status post right total hip arthroplasty. Pain is controlled. No nausea, vomiting. Did tolerate some diet. Did work with therapy, no new issues. Comfortable. REVIEW OF SYSTEMS: Done for constitutional, cardiovascular, GI, pulmonary, musculoskeletal; relevant findings as above. CURRENT MEDICATIONS: Reviewed in today's electronic records. PHYSICAL EXAMINATION: Temperature 98.3, pulse 99, respirations 17, blood pressure 118/69, pulse ox 98% on room air. EYES: Pupils equal. Conjunctivae normal. HENT: External appearance of nose and ears normal. Oral cavity normal. NECK: JVD not raised. Mass not palpable. RESPIRATORY: Effort normal. LUNGS: Fair entry. CARDIOVASCULAR: First and second sounds normal. No edema. ABDOMEN: Soft, nontender. Liver and spleen not palpable. Right hip incision site current dressing. INVESTIGATIONS: White count 8.6, hemoglobin 9.2, potassium 3.9, creatinine 0.96. ASSESSMENT: 1. Right total hip arthroplasty. 2. Acute postprocedure blood loss anemia expected from surgery. 3. Hyperlipidemia. 4. Primary osteoarthritis. 5. Acute urinary tract infection started before surgery. PLAN: Home medications resumed. Patient is on Xarelto for DVT prophylaxis. Should follow up with his PCP upon discharge. Iron supplement has been added. Care was discussed with the patient and . Thank you, Dr. Martins. TIARA / NASRIN: [id number] /
== END 2019-07-21 11:47 | disposition home health service (06) ==
LOC: OR 07:45 → 4SSUR 14:22 → OR 07-21 11:47
PROVIDERS: ATTEND Orthopaedic Surgery
DX: M16.11 Unilateral primary osteoarthritis, right hip (principal); G89.4 Chronic pain syndrome; K21.9 Gastro-esophageal reflux disease without esophagitis; M41.9 Scoliosis, unspecified; G43.909 Migraine, unspecified, not intractable, without status migrainosus; E78.5 Hyperlipidemia, unspecified; E78.00 Pure hypercholesterolemia, unspecified; N18.3 Chronic kidney disease, stage 3 (moderate); H91.90 Unspecified hearing loss, unspecified ear; F17.200 Nicotine dependence, unspecified, uncomplicated; I08.0 Rheumatic disorders of both mitral and aortic valves; R26.81 Unsteadiness on feet; M47.26 Other spondylosis with radiculopathy, lumbar region; K57.30 Diverticulosis of large intestine without perforation or abscess without bleeding; M81.0 Age-related osteoporosis without current pathological fracture; M06.9 Rheumatoid arthritis, unspecified; G51.0 Bell's palsy; Z97.3 Presence of spectacles and contact lenses; Z90.710 Acquired absence of both cervix and uterus; Z98.890 Other specified postprocedural states; Z80.42 Family history of malignant neoplasm of prostate; Z82.49 Family history of ischemic heart disease and other diseases of the circulatory system; Z79.891 Long term (current) use of opiate analgesic; Z79.899 Other long term (current) drug therapy; Z88.6 Allergy status to analgesic agent; Z88.1 Allergy status to other antibiotic agents; Z88.8 Allergy status to other drugs, medicaments and biological substances
CPT/HCPCS: 97161; 86891; 86900; 86901; 80048; 85025; 86850; 88300; 73501; 27130; C1776; J0171; J1200; J0690 ×3; J2405; J1885; J2795; J0735; J1170

== ENCOUNTER → 2020-03-25 | Outpatient (CLI) | payer MEDICARE, OTHER ==
--- NOTE | 2020-03-25 17:57 | FL ---
EXAMINATION TYPE: FL barium swallow DATE OF EXAM: 03/25/2020 CLINICAL HISTORY: Chronic nausea TECHNIQUE: A double contrast esophagram is performed utilizing air and barium. A total of 1 minute 40 seconds of fluoroscopic time was utilized during procedure. Total images obtained 19. COMPARISON: None FINDINGS: There is a large hiatal hernia with partially intrathoracic stomach including the gastric f undus and proximal gastric body. The esophagus shows normal emptying into the stomach. Mild tertiary peristaltic waves of the esophagus are seen. No esophageal mucosal abnormality. No significant gastro esophageal reflux was seen during real time performance of this study. There is normal emptying of th e stomach into the duodenum. IMPRESSION: 1. Large hiatal hernia with partially intrathoracic stomach. 2. Normal esophageal and gastric emptying.
== END | disposition home or self-care (01) ==
LOC: RADUSWWP 10:50
PROVIDERS: ATTEND Family Medicine
DX: K44.9 Diaphragmatic hernia without obstruction or gangrene (principal)
CPT/HCPCS: 74220

== ENCOUNTER → 2020-05-23 | Outpatient (CLI) | payer MEDICARE, OTHER ==
--- NOTE | 2020-05-24 02:18 | MR ---
EXAMINATION TYPE: MR shoulder RT wo con DATE OF EXAM: 05/23/2020 COMPARISON: None HISTORY: Rt shoulder pain, limited ROM x 1 month, no trauma Multiplanar multiecho imaging of the right shoulder was performed without contrast. There is a mild to moderate shoulder joint effusion. The biceps tendon is intact. Subscapularis tendo n is intact. There is narrowing of the shoulder joint space with spurring of the glenoid angel. There is some spurring on the humeral head. There are small areas of increased signal in the supraspinatus tendon near the attachment on the grea ter tuberosity of the humerus. There is no retraction of the tendon. There is a large full-thickness defect near the greater tuberosity best seen on the sagittal T2 images. I see no focal bone destructi on. Scapula appears intact. IMPRESSION: Shoulder joint effusion with moderate osteoarthritis. Large full-thickness rotator cuff tear. No retraction of the supraspinatus tendon.
== END | disposition home or self-care (01) ==
LOC: RADMRIMAIN 19:28
PROVIDERS: ATTEND Family Medicine
DX: M19.011 Primary osteoarthritis, right shoulder (principal); M75.121 Complete rotator cuff tear or rupture of right shoulder, not specified as traumatic

== ENCOUNTER → 2020-05-26 | Outpatient (CLI) | payer MEDICARE, OTHER | END | disposition home or self-care (01) | LOC: LABPAT 12:26 | PROVIDERS: ATTEND Orthopaedic Surgery | DX: Z01.812 Encounter for preprocedural laboratory examination (principal) | CPT/HCPCS: 87070 ==

== ENCOUNTER 2020-07-19 08:00 | Inpatient (IN) | payer MEDICARE, OTHER ==
[2020-07-20 14:45] VITALS: BMI 25.1
[2020-07-25] MEDS ORDERED: MIDAZOLAM 2 MG/2 ML VIAL IV PRN (07:00)
--- NOTE | 2020-07-25 09:45 | HP ---
HISTORY AND PHYSICAL CHIEF COMPLAINT: Right shoulder pain. 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 It has worsened over the past couple months. She is having pain with any attempted use of the shoulder. She is also having significant night symptoms. She rates her pain 10/10. She notes it severely limits her. PAST MEDICAL HISTORY: Significant for arthritis, diverticulosis, hiatal hernia, hyperlipidemia. PAST SURGICAL HISTORY: Significant for bilateral total hip arthroplasty, lumbar spine surgery, tonsillectomy, hysterectomy, left hand surgery, and cataract removal. CURRENT MEDICATIONS: 1. Gabapentin. 2. Hydrocodone. 3. Lovastatin. ALLERGIES: She has allergies to ASPIRIN, ELAVIL, and KENALOG. FAMILY HISTORY: Significant for cancer. SOCIAL HISTORY: Negative for current tobacco or alcohol use. REVIEW OF SYSTEMS: Sixteen-point review of systems otherwise reviewed and is noncontributory. PHYSICAL EXAMINATION: On examination, the patient is approximately 5 feet 1 inch, 133 pounds of mesomorphic habitus. HEENT exam is nonfocal. Neck is supple. Active range of motion of the right shoulder. forward elevation 115 degrees, external rotation with arm at side 45 degrees, internal rotation to the buttock. Motor strength is 5/5 for abduction and external rotation. Impingement test, Neer test are positive. She is tender about the anterior subacromial space and anterior glenohumeral joint. She has moderate crepitus. Her distal neurovascular exam appears intact in the right upper extremity. X-rays to include AP and outlet views of the right shoulder obtained in the office show severe osteoarthrosis with [id number] changes and subchondral sclerosis. There is no significant posterior erosion. The humeral head to acromial distance appears to be maintained. Previous MRI of the right shoulder shows intact rotator cuff along with severe degenerative changes involve the glenohumeral joint. IMPRESSION: Right severe glenohumeral joint osteoarthrosis-symptomatic. RECOMMENDATIONS: I talked to the patient and her family regarding her condition and treatment options. At this point, she is quite symptomatic and limited because of pain related to her osteoarthrosis despite previous conservative measures. After thorough discussion, she opts to proceed with surgery. We will plan to proceed with right total shoulder arthroplasty. Risks and benefits were discussed at length in layman's terms. MMODL / IJN: [id number] /
[2020-07-25] MEDS ORDERED: LIDOCAINE 1% (10MG/ML) FOR IV START INTRADERMA PRN (15:48)
[2020-07-25] MEDS ORDERED: ONDANSETRON 4 MG/2 ML VIAL IVP ONE (15:48)
[2020-07-25] MEDS ORDERED: DEXAMETHASONE SOD PHOSPHATE 4 MG/ML 1 ML VIAL IV ONE (15:48)
[2020-07-26] MEDS ORDERED: ACETAMINOPHEN TAB 500 MG TAB PO PRN (05:00)
[2020-07-26] MEDS ORDERED: TRANEXAMIC ACID 1,000 MG in SODIUM CHLORIDE 0.9% 100 ML IVPB PRN ×4 (05:00)
[2020-07-26] MEDS ORDERED: MELOXICAM 7.5 MG TAB PO PRN (05:00)
[2020-07-26] MEDS ORDERED: fentaNYL (PF) 50 MCG/ML 2 ML AMP IVP PRN (07:00)
[2020-07-26] MEDS: LACTATED RINGERS 1,000 ML IV SCH ×3 (09:27→15:35)
[2020-07-26] MEDS ORDERED: ONDANSETRON 4 MG/2 ML VIAL ONE (09:53)
[2020-07-26] MEDS ORDERED: PROPOFOL 10 MG/ML 20 ML VIAL IV ONE (10:24)
[2020-07-26] MEDS ORDERED: TRANEXAMIC ACID 1,000 MG/10 ML VIAL ONE (10:24)
[2020-07-26] MEDS ORDERED: NEOSTIGMINE 1 MG/ML 10 ML VIAL ONE (10:24)
[2020-07-26] MEDS ORDERED: PHENYLEPHRINE-0.9% NACL SYG 1,000 MCG/10 ML SYRINGE ONE (10:24)
[2020-07-26] MEDS ORDERED: MIDAZOLAM 2 MG/2 ML VIAL ONE (10:24)
[2020-07-26] MEDS ORDERED: SUCCINYLCHOLINE CHLORIDE 100 MG/5 ML SYR IV ONE (10:24)
[2020-07-26] MEDS ORDERED: ROCURONIUM 10 MG/ML (5 ML VIAL) IV ONE (10:24)
[2020-07-26] MEDS ORDERED: SODIUM CHLORIDE 0.9% 100 ML BAG ONE (10:24)
[2020-07-26] MEDS ORDERED: GLYCOPYRROLATE 0.2 MG/ML 2 ML VIAL ONE (10:24)
[2020-07-26] MEDS ORDERED: LIDOCAINE 1% INJ 10MG/ML (20 ML MDV) ONE (10:24)
[2020-07-26] MEDS ORDERED: fentaNYL (PF) 50 MCG/ML 2 ML AMP ONE (10:24)
[2020-07-26] MEDS ORDERED: ROPIVACAINE 5 MG/ML 30 ML VIAL ONE (10:24)
[2020-07-26] MEDS ORDERED: ceFAZolin 3,000 MG in SODIUM CHLORIDE 0.9% IRRIGATIO 3,000 ML IRRIGATION ONE (10:58)
--- NOTE | 2020-07-26 12:24 | P.OP ---
Date of Procedure: 07/26/20 Preoperative Diagnosis: Right shoulder severe glenohumeral joint osteoarthrosis Postoperative Diagnosis: Same Procedure(s) Performed: Right total shoulder arthroplasty Implants: [employer] size 10 press-fit humeral stem with size 10 metaphysis, 44 x 15 mm eccentric humeral head, 44 mm central pegged cemented glenoid component. Anesthesia: [facility] Surgeon: Kris Lucia Pathology: other (Humeral head) Condition: stable Disposition: PACU Indications for Procedure: The patient's a 79-year-old female who presents with progressive right shoulder pain secondary to osteoarthrosis despite conservative measures. A discussion of the risks and benefits of operative intervention versus continued conservative measures was made with patient. She opted to proceed. Specific risks of surgery to include infection, neurovascular injury, development of blood clots, possible fracture, possible component loosening and need for subsequent procedures was discussed. Informed consent was obtained. Operative Findings: As below Description of Procedure: The patient was brought to the operating room, and after induction of general anesthesia was placed in the beachchair position. The bony prominences were appropriately padded. The right upper extremity was prepped and draped in normal fashion. A deltopectoral incision was then made lateral to the coracoid process extending approximately 12 cm. The skin was incised sharply. Subcutaneous tissues were divided bluntly. Electrocautery was used for hemostasis. The deltopectoral interval was identified and the cephalic vein gently retracted laterally with the deltoid. Subdeltoid adhesions were bluntly dissected. A self-retaining retractor was placed. The clavipectoral fascia was opened and the conjoined tendon gently retracted medially. The upper one third of the pectoralis major was released to help facilitate exposure. The biceps was identified and the sheath was opened. The rotator interval was opened. The biceps was tenotomized and allowed to retract distally. The lesser tuberosity osteotomy was performed with a small sagittal saw. This completed with an osteotome. The humeral head was then exposed releasing the capsule off the humeral neck. The shoulder was gently dislocated. A starting hole was made in the head in line with the humeral shaft. The shaft was reamed by hand up to 10 mm. There is good distal chatter. The cutting guide was placed planning on a cut flush with the rotator cuff insertion and 30 of retroversion. The cutting block was pinned in place. The humeral head cut was then made. This measured most appropriately at 44 x 15 mm. Residual inferior osteophytes were carefully removed flush with the crow cortical bone. A posterior glenoid retractor was placed. The glenoid was then exposed releasing the labrum from the 12-6 o'clock position. Residual labral tissue was removed. The glenoid sized most appropriate 44 mm. A guidewire was then inserted planning on the appropriate version. The glenoid was reamed down to a bleeding bony surface. The central pedicle was drilled. The alignment guide was placed in the peripheral peg holes drilled. The trial size 44 mm glenoid was placed and was fully seated. There was good anterior to posterior and inferior to superior fit. The trial component was removed. Pulsatile lavage was utilized. The bony surface was dried. The peripheral peg holes were then pressurized with cement utilizing a syringe. Excess cement was removed. A central peg glenoid was then placed and was fully seated. This was gently impacted. This was held in place until the cement had sufficiently hardened. Attention was then paid again towards preparing the proximal humerus. The appropriate broach was placed in 30 of retroversion and was fully seated. An eccentric 44 x 15 mm humeral head was placed. The shoulder was gently reduced. It was taken through a range of motion. It was felt to be stable in flexion and extension with internal and external rotation. I felt there was adequate [place] of soft tissue tension. The shoulder was gently dislocated. The trial components were then removed. A #2 Ethibond was placed laterally for reattachment of the lesser tuberosity. The humeral stem was inserted in 30 of retroversion and was fully seated. There was good rotational stability. The eccentric 44 x 15 mm humeral head was gently impacted. The shoulder was then gently reduced and taken through range of motion and was felt to be stable. Pulsatile lavage was utilized. Lesser tuberosity was reattached utilizing #2 Ethibond suture. The rotator interval was closed with #2 Ethibond suture. She had minimal drainage at this point therefore a deep drain was not placed. The deltopectoral interval was closed with interrupted 2-0 Vicryl sutures. The subcu tissues were reapproximated with interrupted 2-0 Vicryl sutures. The skin was reprepped with 3-0 subcuticular Prolene suture. Steri-Strips were applied. A sterile dressing was applied in addition to a sling. The patient was then awoken from general anesthesia and transferred to recovery room in good condition. Blood loss was estimated at 200 mL. No complications were incurred. Sponge and needle counts were correct at the end the case.
[2020-07-26] MEDS ORDERED: HYDROcodone/APAP 5-325MG 1 EACH TAB PO PRN (12:25)
[2020-07-26] MEDS ORDERED: HYDROmorphone 0.5 MG/0.5 ML SYRINGE IVP PRN (12:25)
[2020-07-26] MEDS ORDERED: hydrOXYzine pamoate 25 MG CAP PO PRN (12:25)
[2020-07-26] MEDS ORDERED: ONDANSETRON 4 MG/2 ML VIAL IVP PRN (12:25)
[2020-07-26] MEDS ORDERED: fentaNYL (PF) 50 MCG/ML 2 ML AMP IVP ONE (12:42)
[2020-07-26] MEDS ORDERED: MIDAZOLAM 2 MG/2 ML VIAL IVP ONE (12:42)
--- NOTE | 2020-07-26 13:12 | XR ---
EXAMINATION TYPE: XR shoulder limited RT DATE OF EXAM: 07/26/2020 CLINICAL HISTORY: Right shoulder pain and osteoarthritis. TECHNIQUE: Single frontal view of the right shoulder is obtained immediately postoperatively. COMPARISON: Outside by shoulder xray May 26, 2020. FINDINGS: [place] osseous structures are demineralized. Metallic hardware from right shoulder arthropl asty is now present and satisfactory in position. Surgical changes of glenoid with overlying clips an d areas of increased density noted. Adjacent lucency from recent surgery noted. IMPRESSION: As above.
--- NOTE | 2020-07-26 13:38 | P.ANPRN ---
Procedure Note - Anesthesia - Nerve Block Performed Right Interscalene Single Time Out Performed: Yes (12:41) Date of Procedure: 07/26/20 Procedure Start Time: 14:42 Procedure Stop Time: 12:47 Location of Patient: Phase I Indication: Acute Post-Operative Pain, Requested by Surgeon Specifically requested for management of pain by : Kris Lucia Sedation Type: Sedate with meaningful contact maintained Preparation: Sterile Prep Position: Supine Needle Types: Pajunk Needle Gauge: 21 Ultrasound used to visualize needle placement: Yes Ultrasound used to observe medication spread: Yes Injectate: 0.5% Ropivacaine (see comment for volume) (0.375% Ropivicaine 20 cc) Blood Aspirated: No Pain Paresthesia on Injection Noted: No Resistance on Injection: Normal Image Stored and Saved: Yes Events: Uneventful and Well Tolerated
[2020-07-26] MEDS: HYDROcodone/APAP 5-325MG 1 EACH TAB PO PRN (19:54)
--- NOTE | 2020-07-26 20:12 | P.CONS ---
History of Present Illness - Reason for Consult Consult date: 07/26/20 Medical management Requesting physician: Kris Lucia - Chief Complaint Right shoulder pain - History of Present Illness Consultation: This is a pleasant 79-year-old patient of Dr. Martin. 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 She did have surgery in the right hip by Dr. Martins over a year ago. It seems of the joint discomfort dose. And is causing resultant neuropathy. She was given some Neurontin by Dr. Fonseca. Dr. Lucia dismount the patient to follow-up with Dr. Martins with the right hip. She is also having trouble with a left hip she is following with Dr. Fonseca. Patient today has now undergone surgery for the right shoulder. Short and the dressing and local anesthesia currently pain is controlled. No nausea vomiting. Sitting up in bed. Denies any cardiac history. at the bedside. Review of systems: GEN.: None EYES: None HEENT: None NECK: None RESPIRATORY: None CARDIOVASCULAR: None GASTROINTESTINAL: None GENITOURINARY: None MUSCULOSKELETAL: Pain in different joints] LYMPHATICS: None HEMATOLOGICAL: None PSYCHIATRY: None NEUROLOGICAL: Neuropathy to the right hip and leg Past medical history to include: Hard of hearing, hyperlipidemia, osteoporosis, migraines, hiatal hernia, right hip neuropathy, Social history: No history of smoking or alcohol. . Physical examination: VITAL SIGNS: 97.2, 63, 18, 110 x 68, 99% on 2 L GENERAL: BMI 25.3, sitting up in bed, awake. EYES: Pupils equal. Conjunctiva normal. HEENT: External appearance of nose and ears normal, oral cavity grossly normal. NECK: JVD not raised; masses not palpable. HEART: First and second heart sounds are normal; no edema. LUNGS: Respiratory rate normal; clear to auscultation. ABDOMEN: Soft, nontender, liver spleen not palpable, no masses palpable. PSYCH: Alert and oriented x3; mood and affect normal. MUSCULAR skeletal: Dressing over the right shoulder. Evidence of OA in the hands NEUROLOGICAL: Cranial nerves grossly intact; no facial asymmetry, power and sensation grossly intact. LYMPHATICS: No lymph nodes palpable in the axilla and neck Assessment and plan: -Progressive arthritis of the right shoulder with severe glenohumeral joint osteoarthrosis. Patient has no resultant right total shoulder arthroplasty. Currently pain control. 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 Patient requested a follow-up with Dr. Martins for the management of right hip problem. The left hip she will follow-up with Dr. Fonseca. She'll also follow-up with Dr Martin in 1 week's time post surgery. Questions were answered. DVT prophylaxis has been ordered by Dr. Fonseca Thank you Dr. Lucia. Past Medical History Past Medical History: Hearing Disorder / Deafness, Hyperlipidemia, Osteoarthritis (OA) Additional Past Medical History / Comment(s): Hx of colon polyps, Migraines. Sl leaky valve. Hiatal hernia, lge. Hearing aids. 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 Rt shoulder "bone on bone." Steroid inj hands few wks ago, also had steroid pack for shoulder. History of Any Multi-Drug Resistant Organisms: None Reported Past Surgical History: Hysterectomy, Joint Replacement, Orthopedic Surgery, Tonsillectomy Additional Past Surgical History / Comment(s): left thumb, bilateral eye cataract, Total left hip. Rt Total hip07/2019, TRS 07/26/20 Past Anesthesia/Blood Transfusion Reactions: No Reported Reaction, Motion Sickness Past Psychological History: No Psychological Hx Reported Smoking Status: Never smoker Past Alcohol Use History: None Reported Past Drug Use History: None Reported - Past Family History Father Family Medical History: Cancer Additional Family Medical History / Comment(s): prolapse Mother Family Medical History: Deep Vein Thrombosis (DVT) Medications and Allergies Home Medications Medication Instructions Recorded Confirmed Type Lovastatin [Mevacor] 40 mg PO HS 02/08/14 07/26/20 History Multivitamins, Thera [Multivitamin 1 tab PO DAILY 02/08/14 07/26/20 History (formulary)] Topiramate 100 mg PO BID 02/08/14 07/26/20 History Bifidobacterium Infantis [Align] 4 mg PO DAILY 07/20/20 07/26/20 History Fexofenadine/Pseudoephedrine 1 each PO DAILY 07/20/20 07/26/20 History [Cait-D 12 Hour Tablet] Gabapentin [Neurontin] 600 mg PO HS 07/20/20 07/26/20 History Metoprolol Succinate (ER) [Toprol 25 mg PO DAILY 07/20/20 07/26/20 History Xl] Neuriva 1 tab PO DAILY 07/20/20 07/26/20 History Allergies Allergy/AdvReac Type Severity Reaction Status Date / Time amitriptyline HCl Allergy "I GOT Verified 07/26/20 09:32 [From Elavil] SEVERE SHAKES ALL OVER" gatifloxacin [From Tequin] Allergy Unknown Verified 07/26/20 09:32 triamcinolone [From Kenalog] Allergy Unknown Verified 07/26/20 09:32 aspirin AdvReac UNABLE TO Verified 07/26/20 09:32 TAKE HX ULCERS TAPE AdvReac "tape Uncoded 07/26/20 09:32 pulls skin off " BLISTERS Physical Exam Vitals: Vital Signs Temp Pulse Pulse Resp BP Pulse Ox 07/26/20 19:46 97.3 F L 77 18 109/61 93 L 07/26/20 14:40 97.2 F L 63 18 110/68 99 07/26/20 14:01 62 16 113/62 97 07/26/20 13:47 59 L 17 104/62 98 07/26/20 13:31 62 17 104/63 98 07/26/20 13:17 58 L 17 96/56 99 07/26/20 13:10 58 L 16 93/52 99 07/26/20 13:03 56 L 16 84/50 99 07/26/20 12:45 59 L 16 105/54 99 07/26/20 12:30 61 16 119/64 91 L 07/26/20 12:26 97.4 F L 71 16 121/64 93 L 07/26/20 09:25 97.2 F L 83 16 136/77 99 Intake and Output 07/26/20 07/26/20 07/26/20 06:59 14:59 22:59 Intake Total 1001 Output Total 200 350 Balance 801 -350 Intake: IV 1001 Output: Urine 350 Estimated Blood Loss 200 Other: Weight 60.7 kg
[2020-07-26] MEDS ORDERED: ATORVASTATIN 10 MG TAB PO SCH (21:00)
[2020-07-26] MEDS ORDERED: GABAPENTIN 300 MG CAP PO SCH (21:00)
[2020-07-26] MEDS: TOPIRAMATE 100 MG TAB PO SCH (22:15)
[2020-07-27] MEDS: HYDROcodone/APAP 5-325MG 1 EACH TAB PO PRN ×2 (04:44→09:19)
[2020-07-27 07:42] VITALS: BP 137/97; PULSE 95; RESP 16; TEMP 98.5
[2020-07-27] MEDS ORDERED: MULTIVITAMINS, THERA 1 EACH TAB PO SCH (09:00)
[2020-07-27] MEDS ORDERED: METOPROLOL SUCCINATE (ER) 25 MG TAB.ER.24H PO SCH (09:00)
[2020-07-27] MEDS ORDERED: NEURIVA PO SCH (09:00)
[2020-07-27] MEDS: TOPIRAMATE 100 MG TAB PO SCH (09:19)
--- NOTE | 2020-07-27 12:19 | P.PN ---
Subjective Progress Note Date: 07/27/20 Principal diagnosis: Status post right total shoulder arthroplasty Patient notes mild right shoulder pain. She's been up walking with therapy. Objective - Vital Signs Vital signs: Vital Signs Temp 98.5 F 07/27/20 07:41 Pulse 95 07/27/20 07:41 Resp 16 07/27/20 07:41 BP 137/97 07/27/20 07:41 Pulse Ox 96 07/27/20 07:41 Intake & Output 07/26/20 07/27/20 07/27/20 18:59 06:59 18:59 Intake Total 1001 Output Total 550 Balance 451 Weight 60.7 kg Intake: IV 1001 Output: Urine 350 Estimated Blood Loss 200 Other: # Voids 2 - Exam Right shoulder incision clean/dry/intact Neurovascular exam intact right upper extremity - Constitutional General appearance: Present: no acute distress Assessment and Plan Assessment: Status post right total shoulder arthroplasty Plan: Discharge home. Follow-up 2 weeks. 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 Keep incision clean and dry. Time with Patient: Less than 30
--- NOTE | 2020-07-28 19:30 | P.PN ---
Progress Note - Text Progress Note Date: 07/27/20 - Chief Complaint Right shoulder pain Consultation: This is a pleasant 79-year-old patient of Dr. Martin. 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 She did have surgery in the right hip by Dr. Martins over a year ago. Patient has been told that there is some joint dislocation. And is causing resultant neuropathy. She was given some Neurontin by Dr. Fonseca. Dr. Lucia wants the patient to follow-up with Dr. Martins for the right hip. She is also having trouble with left hip she is following with Dr. Fonseca. Patient today has now undergone surgery for the right shoulder. Today-patient doing much better. Pain control. Did tolerate her diet. Discharge planning discussed with the patient. Review of systems: Was done for constitutional, cardiovascular, GI, pulmonary. relevant finding as above Current medications reviewed in today's electronic records Past medical history to include: Hard of hearing, hyperlipidemia, osteoporosis, migraines, hiatal hernia, right hip neuropathy, Social history: No history of smoking or alcohol. . Physical examination: VITAL SIGNS: 98.2, 98, 16, 10 1 x 55, 94% on room air GENERAL: Sitting up, comfortable EYES: Pupils equal. Conjunctiva normal. HEENT: External appearance of nose and ears normal, oral cavity grossly normal. NECK: JVD not raised; masses not palpable. HEART: First and second heart sounds are normal; no edema. LUNGS: Respiratory rate normal; clear to auscultation. ABDOMEN: Soft, nontender, liver spleen not palpable, no masses palpable. PSYCH: Alert and oriented x3; mood and affect normal. MUSCULAR skeletal: Dressing over the right shoulder. Evidence of OA in the hands Assessment and plan: -Progressive arthritis of the right shoulder with severe glenohumeral joint osteoarthrosis. - right total shoulder arthroplasty. 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 Discussed. Follow-up with PCP. Thank you Dr. Lucia.
== END 2020-07-27 13:46 | disposition home or self-care (01) | DRG 483 ==
LOC: 2ORMAIN 07-26 08:58 → 4SSUR 07-26 14:12
PROVIDERS: ADMIT Orthopaedic Surgery; ATTEND Orthopaedic Surgery
PROC: 0RRJ0JZ Replacement of Right Shoulder Joint with Synthetic Substitute, Open Approach (ICD-10-PCS; principal; 2020-07-26 10:45)
DX: M19.011 Primary osteoarthritis, right shoulder (principal); E78.5 Hyperlipidemia, unspecified; K44.9 Diaphragmatic hernia without obstruction or gangrene; K57.90 Diverticulosis of intestine, part unspecified, without perforation or abscess without bleeding; H91.90 Unspecified hearing loss, unspecified ear; G57.91 Unspecified mononeuropathy of right lower limb; M81.0 Age-related osteoporosis without current pathological fracture; G43.909 Migraine, unspecified, not intractable, without status migrainosus; I10 Essential (primary) hypertension; Z79.899 Other long term (current) drug therapy; Z86.010 Personal history of colon polyps; Z98.42 Cataract extraction status, left eye; Z98.41 Cataract extraction status, right eye; Z98.890 Other specified postprocedural states; Z96.643 Presence of artificial hip joint, bilateral; Z88.4 Allergy status to anesthetic agent; Z88.8 Allergy status to other drugs, medicaments and biological substances; Z82.49 Family history of ischemic heart disease and other diseases of the circulatory system; Z80.9 Family history of malignant neoplasm, unspecified
CPT/HCPCS: 64415; 76942; 88300

== ENCOUNTER 2021-02-02 07:55 | Day surgery (SDC) | payer MEDICARE, OTHER ==
[2021-02-02 08:30] VITALS: RESP 16; TEMP 98.3
[2021-02-02] MEDS ORDERED: diazePAM 5 MG TAB PO STA (08:36)
--- NOTE | 2021-02-02 12:01 | FL ---
EXAMINATION TYPE: FL myelogram lumbosacral DATE OF EXAM: 02/02/2021 COMPARISON: Outside lumbar spine x-ray December 08, 2020 HISTORY: Low back pain. Technique and findings: Fluoroscopic assisted lumbar puncture for myelogram. A total of 4 minutes 36 seconds fluoroscopic time used. Approximately 5 cc of Isovue-m 200 was attempted injected. Informed consent was obtained and all the patient's questions were answered. Patient placed in prone and bilateral oblique positions with multiple attempts at lumbar puncture tried at levels from L3-L4 through the L5-S1 levels using bearing approaches under fluoroscopy. Standard sterile technique was utilized as well as appropriate local anesthesia 1% Lidocaine at all attempts. Spinal needle was at tempted to be introduced into the thecal sac under fluoroscopic guidance but all attempts were unsucc essful. One attempt lumbosacral junction showed some contrast opacification extending into the bilat eral sacral nerve roots with difficulty injecting, this was felt to be an confirmed epidural in locat ion and could not be adjusted to be intradural in location despite several attempts. Review of subsequent CT shows extensive osteophytes and bony formation in the posterior elements of t he lower lumbar spine The patient tolerated the attempted procedure well and left the department in stable condition. CT m yelography is to follow. This report is dictated separately. IMPRESSION: Unsuccessful attempted myelography lumbar spine despite multiple attempts at multiple lev els with 2 radiologists attempting.
--- NOTE | 2021-02-02 12:35 | CT ---
EXAMINATION TYPE: CT lumbar spine w con DATE OF EXAM: 02/02/2021 COMPARISON: Outside lumbar spine x-ray December 08, 2020 HISTORY: Lumbago CT DLP: 440.0 mGycm Automated exposure control for dose reduction was used. CONTRAST: CT scan of the lumbar is attempted after attempted intrathecal injection with 5 mL of Isovue M200. Enhanced CT of the lumbar spine was performed. Bone and soft tissue window settings are submitted as well as coronal and sagittal reconstructions. There are 5 lumbar-type vertebra assuming hypoplastic bilateral T12 ribs. Coronal images show dextroc onvex scoliosis centered at L2 level with some reactive levoconvex scoliosis centered at L4-L5 level. Sagittal images show grade 1 retrolisthesis of L1 on L2, L2 on L3, and L3 on L4. Posterior interpedicular rods and screws transfix the L4-L5 levels bilaterally, note is made the righ t L4 screw transverses superiorly into the right lateral aspect of the L3-L4 disc space. Artificial d isc material at L4-L5 level noted. Moderate disc space narrowing with vacuum disc phenomenon L3-L4 level. There is moderate to severe di sc space narrowing and spurring with vacuum disc phenomenon at L2-L3 level. [id number] disc s pace narrowing and spurring at L1-L2 level. Moderate disc space narrowing with vacuum disc phenomenon at T12-L1 level. Unsuccessful contrast injection with some epidural contrast lumbosacral junction. Review of study prasanth ws only gas at the lumbosacral junction from posterior approach but likely thinning of the spinal can al causing this epidural injection. There is multilevel spinous process hypertrophy with bone on bone throughout the lumbar spine. There is some ossific fusion of the posterior elements in the lower lum bar spine. These findings explain why inability for intrathecal access was extremely difficult and co uld not be obtained. I could not attempt upper lumbar attempt without knowledge of the conus level. Axial images at T12-L1 are within normal limits. Axial images L1-L2 level show spondylolisthesis with posterior spur disc complex and [id number] facet arthropathy. There is effacement of the anterior and the left lateral thecal sac on axial imag e 25. There is mild bilateral neural foraminal narrowing. Axial images at L2-L3 level show spondylolisthesis and broad-based posterior spurring and mild-to-mod erate facet arthropathy bilaterally. There is effacement of the anterior thecal sac. There is moderat e left and mild right-sided neural foraminal narrowing. Axial images at L3-L4 level show spondylolisthesis and posterior spur disc complex with mild left and moderate to advanced right-sided uncovertebral facet degenerative changes. There is effacement of th e anterior and posterior lateral thecal sac. There is moderate to severe right and epgn-rs-[id number] l eft-sided neural foraminal narrowing. Axial images at the L4-L5 level show extensive artifact from metallic disc material and posterior fus ion hardware making. There is moderate to advanced right greater than left facet arthropathy. There i s likely some spinal canal stenosis or exit image 51. Suspect mild to moderate bilateral neural deysi inal narrowing sagittal image 31 on the left and 20 on the right. Axial images at the L5-S1 level show epidural contrast injection. Advanced facet arthropathy bilatera lly. No disc herniation. Patent bilateral neural foramina. Contrast injection extends surrounding the bilateral S1 nerves. Mild calcified plaque of the aorta extends into branch vessels. IMPRESSION: Unsuccessful myelogram. Postsurgical change L4-L5 level. Less than optimal positioning of the right L4 screw. S-shaped scoliosis. Multilevel spondylolisthesis. Multilevel moderate to advance d degenerative changes as detailed above.
[2021-02-02 13:04] VITALS: BP 123/60; PULSE 72
== END 2021-02-02 12:33 | disposition home or self-care (01) ==
LOC: RADPROMAIN 07:55
PROVIDERS: ATTEND Orthopaedic Surgery
DX: M48.061 Spinal stenosis, lumbar region without neurogenic claudication (principal); M41.9 Scoliosis, unspecified; Z98.1 Arthrodesis status; M25.78 Osteophyte, vertebrae; Z79.899 Other long term (current) drug therapy; M19.019 Primary osteoarthritis, unspecified shoulder; Z96.642 Presence of left artificial hip joint
CPT/HCPCS: 62304; 72132; J2001; Q9966

== ENCOUNTER → 2021-03-09 | Outpatient (CLI) | payer MEDICARE, OTHER ==
[2021-03-09 11:20] VITALS: BP 119/71; PULSE 71; RESP 18; TEMP 97.9
--- NOTE | 2021-03-09 11:50 | P.PAINCN ---
History of Present Illness - Reason for Consult Consult date: 03/09/21 - History of Present Illness This is 80 years old female with a chronic history of severe low back pain, she had lumbar laminectomy and fusion surgery at L4 5 done 2 years ago, he continues to have severe pain in the low back area with radiation to the buttock, she denies any motor or sensory deficit, and is constant and increases with any activity interference with her quality of life, and preventing her from doing activities of daily livings, she done physical therapy and she is doing home exercise program without any benefit, she continued to use Tylenol and Advil and gabapentin and she continued to have severe pain, she complained of severe numbness and tingling sensation in the anterior aspect of her right leg which is happen after right.anterior Hip replacement, Past Medical History Past Medical History: Hearing Disorder / Deafness, Hyperlipidemia, Osteoarthritis (OA) Additional Past Medical History / Comment(s): Hx of colon polyps, Migraines. Sl leaky valve. Hiatal hernia, lge. Hearing aids. 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 Rt shoulder "bone on bone." Steroid inj hand & shoulder. lower back pain with difficulty sitting, walking and standing History of Any Multi-Drug Resistant Organisms: None Reported Past Surgical History: Hysterectomy, Joint Replacement, Orthopedic Surgery, Tonsillectomy Additional Past Surgical History / Comment(s): left thumb, bilateral eye cataract, Total left hip. Rt Total hip07/2019, TRS 07/26/20 Past Anesthesia/Blood Transfusion Reactions: No Reported Reaction Smoking Status: Never smoker - Past Family History Father Family Medical History: Cancer Mother Family Medical History: Deep Vein Thrombosis (DVT) Medications and Allergies Home Medications Medication Instructions Recorded Confirmed Type Lovastatin [Mevacor] 40 mg PO HS 02/08/14 03/07/21 History Multivitamins, Thera [Multivitamin 1 tab PO DAILY 02/08/14 03/07/21 History (formulary)] Topiramate 100 mg PO BID 02/08/14 03/07/21 History Bifidobacterium Infantis [Align] 4 mg PO DAILY 07/20/20 03/07/21 History Gabapentin [Neurontin] 300 mg PO HS 07/20/20 03/07/21 History Metoprolol Succinate (ER) [Toprol 25 mg PO DAILY 07/20/20 03/07/21 History XL] Aspirin [Adult Low Dose Aspirin EC] 81 mg PO DAILY 01/06/21 03/07/21 History Omeprazole 20 mg PO DAILY 03/07/21 03/07/21 History Allergies Allergy/AdvReac Type Severity Reaction Status Date / Time amitriptyline HCl Allergy "I GOT Verified 03/07/21 15:46 [From Elavil] SEVERE SHAKES ALL OVER" gatifloxacin [From Tequin] Allergy Unknown Verified 03/07/21 15:46 triamcinolone [From Kenalog] Allergy Unknown Verified 03/07/21 15:46 aspirin AdvReac UNABLE TO Verified 03/07/21 15:46 TAKE HX ULCERS TAPE AdvReac "tape Uncoded 03/07/21 15:47 pulls skin off " BLISTERS.paper tape is ok Physical Exam Vitals: Vital Signs Temp Pulse Resp BP Pulse Ox 03/09/21 11:08 97.9 F 71 18 119/71 97 Physical Examinations : -Constitutiona : Cooperative , not in acute distress . -HEENT : nech : supple , no Lymphadenopathy , normal thyroid size . : eyes : no ptosis , no icterus, no photophobia . - neurologic : Cranial nerve II to XII intact , no focal neurological deffecit . -psychatric : alert , oriented X 3 , appropriate affect , intact judgment and insight . -Lymphatic : no Lymphadenopathy . - musculoskeltal : Lumber spine moter stegnth lower extremities ,thigh and legs 5/5 Right side , 5/5 Left side deep tendon reflexes : normal Knee Jerk , normal ankle Jerk lumber facet Loading Test =positive Right , positive Left Range of motion of the lumbar spine Flexion 30 degrees, extension 10 degrees strait leg raising test = negative bilaterally Fabere test= negative bilaterally tenderness over the Sacroiliac joint on the Right , and Left sides Dysesthesia at the anterior aspect of the right thigh Results Comments: Computed tomography scan of the lumbar spine= L4 5 lumbar fusion left L4 screw migrated to the L3 4 disc space L2 3 L3 4 lumbar spondylosis L5-S1 lumbar spondylosis Assessment and Plan Plan: Assessment and plan=1- Lumbar spondylosis with lumbar facet arthropathy without myelopathy 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 Patient continued to have pain after physical therapy and medication management. She to be good candidate to have diagnostic medial branch block lumbar area at L2-3 and L3 4 bilaterally,and possible RFA Time with Patient: Greater than 30 PQRS Measure Charge Sheet Measure #130: Documentation of Current Meds in Medical Chart: Patient's medications documented in chart Measure #226: Tobacco Use: Screen & Cessation Intervention: Pt not a tobacco user Measure #111: Pneumonia Vaccination: Pneumococcal vaccine administered or previously received Measure #47: Advance Care Plan: Advance care planning discussed & documented, pt chose/unable to give Measure #412: Opioid Treatment Agreement: No documentation of signed opioid treatment agreement Measure #408: Opioid Therapy Follow-up Evaluation: Patient had NO f/u eval minimum every 3 months during opioid therapy Measure #317: Preventitive Care & Scrn High Bld Press & F/U: Normal blood pressure, f/u not required Measure #128: Body Mass Index (BMI) Screening & Follow-up: BMI documented ABOVE normal parameters - f/u documented Measure #131: Pain Assessment & Follow-up: Pain positive & plan documented, Follow-up scheduled Measure #431: Unhealthy Alcohol Use Preventative Care & Scrn: Patient not identified as an unhealthy alcohol user Mode of Arrival: Ambulatory - Pain Location Lower Back Non-Pharmacological Interventions: Inactivity, Physical Therapy, Sitting, Stretching Pharmacological Interventions: Medication PQRS Narrative: Smoking Status Never smoker Blood Pressure 119/71 Pain Intensity [Lower Back] 6 Scale Used Numeric (1 - 10) Hx Alcohol Use (MH) No Home Medications: Ambulatory Orders Lovastatin [Mevacor] 40 mg PO HS 02/08/14 Multivitamins, Thera [Multivitamin (formulary)] 1 tab PO DAILY 02/08/14 Topiramate 100 mg PO BID 02/08/14 Bifidobacterium Infantis [Align] 4 mg PO DAILY 07/20/20 Gabapentin [Neurontin] 300 mg PO HS 07/20/20 Metoprolol Succinate (ER) [Toprol XL] 25 mg PO DAILY 07/20/20 Aspirin [Adult Low Dose Aspirin EC] 81 mg PO DAILY 01/06/21 Omeprazole 20 mg PO DAILY 03/07/21
== END | disposition home or self-care (01) ==
LOC: PNWHC3 11:00
PROVIDERS: ATTEND Specialist
DX: M47.896 Other spondylosis, lumbar region (principal); M46.96 Unspecified inflammatory spondylopathy, lumbar region
CPT/HCPCS: 99211

== ENCOUNTER → 2021-08-25 | Outpatient (CLI) | payer MEDICARE, OTHER ==
--- NOTE | 2021-08-28 11:31 | MM ---
Reason for exam: screening (asymptomatic). Last mammogram was performed 2 years and 5 months ago. History: Patient is postmenopausal. Took hormonal contraceptives for 6 months beginning at age 26. Took estrogen for 25 years beginning at age 39. Took progesterone for 25 years beginning at age 39. Physical Findings: A clinical breast exam by your physician is recommended on an annual basis and results should be correlated with mammographic findings. MG 3D Screening Mammo W/Cad Bilateral CC and MLO view(s) were taken. Prior study comparison: March 12, 2019, bilateral MG 3d screening mammo w/cad. September 30, 2018, right breast MG 3d diag mammo w/cad RT. There are scattered fibroglandular densities. There is no discrete abnormality. No significant changes when compared with prior studies. ASSESSMENT: Negative, BI-RAD 1 RECOMMENDATION: Routine screening mammogram of both breasts in 1 year.
== END | disposition home or self-care (01) ==
LOC: RADMAMWWP 13:14
PROVIDERS: ATTEND Family Medicine
DX: Z12.31 Encounter for screening mammogram for malignant neoplasm of breast (principal)
CPT/HCPCS: 77063; 77067

== ENCOUNTER 2022-10-05 15:54 | Emergency (ER) | payer MEDICARE, OTHER ==
[2022-10-05] MEDS ORDERED: PANTOPRAZOLE 40 MG/10 ML VIAL IVP STA (16:35)
[2022-10-05] MEDS ORDERED: ONDANSETRON 4 MG/2 ML VIAL IVP STA (16:35)
[2022-10-05] MEDS ORDERED: SODIUM CHLORIDE 0.9% 500 ML 500 ML IV STA (16:35)
--- NOTE | 2022-10-05 16:36 | ED ---
GI Bleed HPI - General Chief complaint: GI Bleed Stated complaint: GI Bleed Source: patient, EMS, RN notes reviewed, old records reviewed Mode of arrival: EMS Limitations: no limitations - History of Present Illness Initial comments: This is an 82-year-old female to the ER today. Patient comes today for evaluation of weakness lightheadedness near syncopal event unable to get off of her car when she was having a bowel movement today, EMS was called her bedside patient was found to be unable to again to get off the toilet with the toilet full of blood and dark tarry stools. Patient admits the symptoms have been ongoing for a few days and getting progressively worse starting around . Weak lightheaded no blood thinners and no history of GI bleed. History of colo noscopy which was normal MD complaint: blood on toilet paper, melena, blood streaked stool -: days(s) Radiation: none Severity scale (1-10): 10 Quality: cramping Consistency: constant Improves with: none Worsens with: none Context: near syncope Associated Symptoms: abdominal pain, nausea, malaise, weakness Treatments Prior to Arrival: none - Related Data Home Medications Medication Instructions Recorded Confirmed Lovastatin [Mevacor] 40 mg PO HS 02/08/14 10/05/22 Gabapentin [Neurontin] 600 mg PO HS 07/20/20 10/05/22 Metoprolol Succinate (ER) [Toprol 25 mg PO DAILY 07/20/20 10/05/22 XL] Ibuprofen [Advil] 400 mg PO HS 06/28/21 10/05/22 Neuriva 1 tab PO DAILY 06/28/21 10/05/22 HYDROcodone/APAP 5-325MG [[place] 1 - 2 tab PO DAILY PRN 10/05/22 10/05/22 5-325] Multivit-Min/Iron/Folic/Lutein 1 tab PO DAILY 10/05/22 10/05/22 [Centrum Silver Women Tablet] Topiramate 50 mg PO BID 10/05/22 10/05/22 Allergies Allergy/AdvReac Type Severity Reaction Status Date / Time amitriptyline HCl AdvReac "I GOT Verified 10/05/22 17:43 [From Elavil] SEVERE SHAKES ALL OVER" aspirin AdvReac low doses Verified 10/05/22 17:43 are fine, high doses cause/upset ulcers gatifloxacin [From Tequin] AdvReac Nausea, Verified 10/05/22 17:43 stomach pain triamcinolone [From Kenalog] AdvReac Nausea, Verified 10/05/22 17:43 stomach pain TAPE AdvReac "tape Uncoded 10/05/22 16:09 pulls skin off " BLISTERS.paper tape is ok Review of Systems ROS Statement: Those systems with pertinent positive or pertinent negative responses have been documented in the HPI. ROS Other: All systems not noted in ROS Statement are negative. Past Medical History Past Medical History: Hearing Disorder / Deafness, Hyperlipidemia, Osteoarthritis (OA) Additional Past Medical History / Comment(s): Migraines. Sl leaky valve. large Hiatal hernia, Hearing aids. 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-has severe ongoing pain, lower back pain with difficulty sitting, walking and standing, "bad balance" History of Any Multi-Drug Resistant Organisms: None Reported Past Surgical History: Hysterectomy, Joint Replacement, Orthopedic Surgery, Tonsillectomy Additional Past Surgical History / Comment(s): left thumb surgery, bilateral eye cataract, delon hip replacements, rt shoulder replacement 07/26/20 Past Anesthesia/Blood Transfusion Reactions: No Reported Reaction Smoking Status: Never smoker - Past Family History Father Family Medical History: Cancer Mother Family Medical History: Deep Vein Thrombosis (DVT) General Exam Limitations: no limitations General appearance: alert, in no apparent distress, anxious, lethargic Head exam: Present: atraumatic, normocephalic, normal inspection Eye exam: Present: normal appearance, PERRL, EOMI. Absent: scleral icterus, conjunctival injection, periorbital swelling ENT exam: Present: normal exam, mucous membranes dry Neck exam: Present: normal inspection. Absent: tenderness, meningismus, lymphadenopathy Respiratory exam: Present: normal lung sounds bilaterally. Absent: respiratory distress, wheezes, rales, rhonchi, stridor Cardiovascular Exam: Present: regular rate, normal rhythm, normal heart sounds. Absent: systolic murmur, diastolic murmur, rubs, gallop, clicks GI/Abdominal exam: Present: soft, normal bowel sounds. Absent: distended, tenderness, guarding, rebound, rigid Rectal exam: Present: heme (+) stool, black stool, bloody stool Extremities exam: Present: normal inspection, full ROM, normal capillary refill. Absent: tenderness, pedal edema, joint swelling, calf tenderness Back exam: Present: normal inspection Neurological exam: Present: alert, oriented X3, CN II-XII intact Psychiatric exam: Present: normal affect, normal mood Skin exam: Present: warm, dry, intact, normal color. Absent: rash Course Vital Signs 10/05/22 10/05/22 10/05/22 16:03 16:10 16:20 Temperature 97.2 F L Pulse Rate 88 95 101 H Respiratory 16 17 31 H Rate Blood Pressure 75/43 75/43 97/42 O2 Sat by Pulse 99 82 L 100 Oximetry 10/05/22 10/05/22 10/05/22 16:30 16:40 16:50 Temperature Pulse Rate 108 H 95 86 Respiratory 17 13 6 L Rate Blood Pressure 102/73 130/83 108/84 O2 Sat by Pulse 88 L 100 100 Oximetry 10/05/22 10/05/22 10/05/22 17:10 17:34 17:56 Temperature 98.8 F Pulse Rate 92 85 86 Respiratory 16 18 16 Rate Blood Pressure 98/77 104/72 97/54 O2 Sat by Pulse 100 100 98 Oximetry 10/05/22 10/05/22 10/05/22 18:06 18:26 19:19 Temperature 97.9 F 97.8 F 98.7 F Pulse Rate 73 75 78 Respiratory 18 18 18 Rate Blood Pressure 100/52 99/49 107/47 O2 Sat by Pulse 100 100 99 Oximetry - Reevaluation(s) Reevaluation #1: 10/05/22 17:54 Medical records reviewed Reevaluation #2: 10/05/22 17:54 Patient symptoms are moderately improving 10/05/22 17:54 Patient is given transfusion here in the ER Reevaluation #3: 10/05/22 17:54 Patient informed of results and questions are answered Reevaluation #4: 10/05/22 17:54 Was pt. sent in by a medical professional or institution? @ -no Did you speak to anyone other than the patient for history? @ -no Did you review nursing and triage notes? @ -agree Were old charts reviewed? @ -no Differential Diagnosis? @ -prior EKG interpreted by me (3pts min.)? @ -yes X-rays interpreted by me (1pt min.)? @ -yes CT interpreted by me (1pt min.)? @ -no U/S interpreted by me (1pt. min.)? @ -no What testing was considered but not performed? (CT, X-rays, U/S, labs)? Why? @ -no What meds were considered but not given? Why? @ -no Did you discuss the management of the patient with other professionals? @ -no Did you reconcile home meds? @ -no Was smoking cessation discussed for >3mins.? @ -no Was critical care preformed (if so, how long)? @ -yes31 Were there social determinants of health that impacted care today? How? (Homelessness, low income, unemployed, alcoholism, drug addiction, transportation, low edu. Level, literacy, decrease access to med. care, shelter, rehab)? @ -no Was there de-escalation of care discussed even if they declined? (Discuss DNR or withdrawal of care, Hospice)? @ -no What co-morbidities impacted this encounter? (DM, HTN, Smoking, COPD, CAD, Cancer, CVA, Hep., AIDS, mental health diagnosis, sleep apnea, morbid obesity)? @ -none Was patient admitted / discharged? @ -82 female presented to the ER today for evaluation regards to close blood per rectum as well as melanotic stools dark tarry stools per EMS, patient is weak lightheaded dizzy and near syncopal, no blood thinners. Patient is given transfusion here in the ER will be transferred to [facility] for definitive evaluation and treatment Transferred for admission Undiagnosed new problem with uncertain prognosis? @ -no Drug Therapy requiring intensive monitoring for toxicity (Heparin, Nitro, Insulin, Cardizem)? @ -no Were any procedures done? @ -no Diagnosis/symptom? @ -GIB,Anemia,Hypotension Acute, or Chronic, or Acute on Chronic? @ -acute Uncomplicated (without systemic symptoms) or Complicated (systemic symptoms)? @ -complicated Side effects of treatment? @ -no Exacerbation, Progression, or Severe Exacerbation] @ -severe Poses a threat to life or bodily function? @ -yes \\ Reevaluation #5: 10/05/22 17:54 Differential Weakness: Hypoglycemia, shock, sepsis, hyponatremia, anemia, infection, MS, ETOH, adverse medicine reaction, overdose, stroke, this is not meant to be an all-inclusive list. - Consultations Consultation #1: Spoke with [facility] this is due to our lack of active GI doctor and they accept transfer Medical Decision Making - Medical Decision Making 82 female to the emergency department for evaluation of weakness weakness lightheadedness and near syncopal event with significant GI bleed, gross blood and melena. Patient is transfused here in the ER and will be transferred [facility] - Lab Data Result diagrams: 10/05/22 16:51 10/05/22 16:51 Lab Results 10/05/22 10/05/22 10/05/22 Range/Units 16:35 16:51 16:51 WBC 10.4 (3.8-10.6) k/uL RBC 2.54 L (3.80-5.40) m/uL Hgb 8.7 L (11.4-16.0) gm/dL Hct 24.9 L (34.0-46.0) % MCV 98.0 (80.0-100.0) fL MCH 34.2 (25.0-35.0) pg MCHC 34.9 (31.0-37.0) g/dL RDW 13.0 (11.5-15.5) % Plt Count 162 (150-450) k/uL MPV 8.7 Neutrophils % 92 % Lymphocytes % 4 % Monocytes % 3 % Eosinophils % 1 % Basophils % 0 % Neutrophils # 9.5 H (1.3-7.7) k/uL Lymphocytes # 0.5 L (1.0-4.8) k/uL Monocytes # 0.3 (0-1.0) k/uL Eosinophils # 0.1 (0-0.7) k/uL Basophils # 0.0 (0-0.2) k/uL PT 10.5 (9.0-12.0) sec INR 1.0 (<1.2) APTT 16.8 L (22.0-30.0) sec Sodium (137-145) mmol/L Potassium (3.5-5.1) mmol/L Chloride (98-107) mmol/L Carbon Dioxide (22-30) mmol/L Anion Gap mmol/L BUN (7-17) mg/dL Creatinine (0.52-1.04) mg/dL Est GFR (CKD-EPI)AfAm (>60 ml/min/1.73 sqM) Est GFR (CKD-EPI)NonAf (>60 ml/min/1.73 sqM) Glucose (74-99) mg/dL Lactic Ac Sepsis Rflx Plasma Lactic Acid Nate 3.2 H* (0.7-2.0) mmol/L Calcium (8.4-10.2) mg/dL Magnesium (1.6-2.3) mg/dL Total Bilirubin (0.2-1.3) mg/dL AST (14-36) U/L ALT (4-34) U/L Alkaline Phosphatase (38-126) U/L Troponin I (0.000-0.034) ng/mL Total Protein (6.3-8.2) g/dL Albumin (3.5-5.0) g/dL Lipase (23-300) U/L Blood Type Blood Type Recheck Bld Type Recheck Status Antibody Screen Crossmatch Spec Expiration Date 10/05/22 10/05/22 10/05/22 Range/Units 16:51 16:51 16:51 WBC (3.8-10.6) k/uL RBC (3.80-5.40) m/uL Hgb (11.4-16.0) gm/dL Hct (34.0-46.0) % MCV (80.0-100.0) fL MCH (25.0-35.0) pg MCHC (31.0-37.0) g/dL RDW (11.5-15.5) % Plt Count (150-450) k/uL MPV Neutrophils % % Lymphocytes % % Monocytes % % Eosinophils % % Basophils % % Neutrophils # (1.3-7.7) k/uL Lymphocytes # (1.0-4.8) k/uL Monocytes # (0-1.0) k/uL Eosinophils # (0-0.7) k/uL Basophils # (0-0.2) k/uL PT (9.0-12.0) sec INR (<1.2) APTT (22.0-30.0) sec Sodium 142 (137-145) mmol/L Potassium 4.2 (3.5-5.1) mmol/L Chloride 114 H (98-107) mmol/L Carbon Dioxide 14 L (22-30) mmol/L Anion Gap 14 mmol/L BUN 65 H (7-17) mg/dL Creatinine 1.05 H (0.52-1.04) mg/dL Est GFR (CKD-EPI)AfAm 58 (>60 ml/min/1.73 sqM) Est GFR (CKD-EPI)NonAf 50 (>60 ml/min/1.73 sqM) Glucose 120 H (74-99) mg/dL Lactic Ac Sepsis Rflx Plasma Lactic Acid Nate (0.7-2.0) mmol/L Calcium 8.2 L (8.4-10.2) mg/dL Magnesium 2.0 (1.6-2.3) mg/dL Total Bilirubin 0.3 (0.2-1.3) mg/dL AST 20 (14-36) U/L ALT 17 (4-34) U/L Alkaline Phosphatase 61 (38-126) U/L Troponin I 0.014 (0.000-0.034) ng/mL Total Protein 5.7 L (6.3-8.2) g/dL Albumin 3.5 (3.5-5.0) g/dL Lipase 68 (23-300) U/L Blood Type B Positive Blood Type Recheck B Pos Bld Type Recheck Status No Antibody Screen NEGATIVE Crossmatch See Detail Spec Expiration Date 10/08/2022 - 235010/05/22 Range/Units 17:34 WBC (3.8-10.6) k/uL RBC (3.80-5.40) m/uL Hgb (11.4-16.0) gm/dL Hct (34.0-46.0) % MCV (80.0-100.0) fL MCH (25.0-35.0) pg MCHC (31.0-37.0) g/dL RDW (11.5-15.5) % Plt Count (150-450) k/uL MPV Neutrophils % % Lymphocytes % % Monocytes % % Eosinophils % % Basophils % % Neutrophils # (1.3-7.7) k/uL Lymphocytes # (1.0-4.8) k/uL Monocytes # (0-1.0) k/uL Eosinophils # (0-0.7) k/uL Basophils # (0-0.2) k/uL PT (9.0-12.0) sec INR (<1.2) APTT (22.0-30.0) sec Sodium (137-145) mmol/L Potassium (3.5-5.1) mmol/L Chloride (98-107) mmol/L Carbon Dioxide (22-30) mmol/L Anion Gap mmol/L BUN (7-17) mg/dL Creatinine (0.52-1.04) mg/dL Est GFR (CKD-EPI)AfAm (>60 ml/min/1.73 sqM) Est GFR (CKD-EPI)NonAf (>60 ml/min/1.73 sqM) Glucose (74-99) mg/dL Lactic Ac Sepsis Rflx Y Plasma Lactic Acid Nate (0.7-2.0) mmol/L Calcium (8.4-10.2) mg/dL Magnesium (1.6-2.3) mg/dL Total Bilirubin (0.2-1.3) mg/dL AST (14-36) U/L ALT (4-34) U/L Alkaline Phosphatase (38-126) U/L Troponin I (0.000-0.034) ng/mL Total Protein (6.3-8.2) g/dL Albumin (3.5-5.0) g/dL Lipase (23-300) U/L Blood Type Blood Type Recheck Bld Type Recheck Status Antibody Screen Crossmatch Spec Expiration Date - EKG Data -: EKG Interpreted by Me (EKG is sinus 78 HI 185 QRS 78 QTc 397) Critical Care Time Critical Care Time: Yes Total Critical Care Time: 31 Disposition Clinical Impression: Melena, GI bleed, Symptomatic anemia, Hypotension, Near syncope Disposition: OTHER INSTITUTION NOT DEFINED Condition: Serious Is patient prescribed a controlled substance at d/c from ED?: No Referrals: Ramana Martin DO [Primary Care Provider] - 1-2 days Time of Disposition: 17:50 - Out of Hospital Transfer - Req. Specs Out of Hospital Transfer - Requested Specifics: Other Emergency Center ([facility])
[2022-10-05 17:00] LABS: Basophils % (A) 0 %; Eosinophils # (A) 0.1 k/uL (0-0.7); Eosinophils % (A) 1 %; HCT 24.9 % (34.0-46.0); HGB 8.7 gm/dL (11.4-16.0); Lymphocytes # (A) 0.5 k/uL (1.0-4.8); Lymphocytes % (A) 4 %; MCH 34.2 pg (25.0-35.0); MCHC 34.9 g/dL (31.0-37.0); Mean Platelet Volume 8.7; Monocytes # (A) 0.3 k/uL (0-1.0); Monocytes % (A) 3 %; Neutrophils # (A) 9.5 k/uL (1.3-7.7); Neutrophils % (A) 92 %; Platelet Count 162 k/uL (150-450); RBC 2.54 m/uL (3.80-5.40); WBC 10.4 k/uL (3.8-10.6)
[2022-10-05 17:10] LABS: Albumin 3.5 g/dL (3.5-5.0); Calcium 8.2 mg/dL (8.4-10.2); Potassium 4.2 mmol/L (3.5-5.1); Total Bilirubin 0.3 mg/dL (0.2-1.3); Total Protein 5.7 g/dL (6.3-8.2)
[2022-10-05 17:16] LABS: Prothrombin Time 10.5 sec (9.0-12.0)
[2022-10-05 17:28] LABS: Partial Thromboplastin Time 16.8 sec (22.0-30.0)
[2022-10-05 18:17] VITALS: RESP 18
[2022-10-05 19:23] VITALS: BP 107/47; PULSE 78; TEMP 98.7
== END 2022-10-05 19:21 | disposition other institution (70) ==
LOC: EC 15:54
DX: K92.1 Melena (principal); K92.2 Gastrointestinal hemorrhage, unspecified; D64.9 Anemia, unspecified; R55 Syncope and collapse; I10 Essential (primary) hypertension; M19.90 Unspecified osteoarthritis, unspecified site; E78.5 Hyperlipidemia, unspecified; Z79.899 Other long term (current) drug therapy; Z88.6 Allergy status to analgesic agent; Z88.8 Allergy status to other drugs, medicaments and biological substances
CPT/HCPCS: 36415; 93005; 86900; 86901; 80053; 83605; 83690; 83735; 84484; 85025; 85610; 85730; 86850; 86920; 99291; 96374; 96361; 36430; P9016; C9113

== ENCOUNTER → 2022-10-18 | Outpatient (CLI) | payer MEDICARE, OTHER ==
--- NOTE | 2022-10-19 08:41 | MM ---
Reason for Exam: Screening (asymptomatic). Last mammogram was performed 1 year(s) and 2 month(s) ago. Patient History: Menarche at age 12. First Full-Term at age 27. Left ovary removed at age 39. Right ovary removed at age 39. Hysterectomy at age 39. Postmenopausal. Patient has history of breast feeding. Estrogen for 25 years from age 39 until age 64. Progesterone for 25 years from age 39 until age 64. Hormonal Contraceptives for 6 months from age 26 until age 26. Risk Values: Josey 5 year model risk: 2.0%. NCI Lifetime model risk: 2.8%. Prior Study Comparison: 09/30/2018 Right Diagnostic Mammogram, [facility]. 03/12/2019 Bilateral Screening Mammogram, [facility]. 08/25/2021 Bilateral Screening Mammogram, [facility]. Tissue Density: There are scattered fibroglandular densities. Findings: Analyzed By CAD. There is no suspicious group of microcalcifications or new suspicious mass in either breast. Overall Assessment: Negative, BI-RAD 1 Management: Screening Mammogram of both breasts in 1 year. . Patient should continue monthly self-breast exams. A clinical breast exam by your physician is recommended on an annual basis. This exam should not preclude additional follow-up of suspicious palpable abnormalities. Note on Josey scores and lifetime risk: 1. A Josey score greater than 3% is considered moderate risk. If this is the case, consider specialist referral to assess eligibility for a risk reducing agent. 2. If overall lifetime risk for the development of breast cancer is 20% or higher, the patient may qualify for future screening with alternating mammogram and breast MRI. Electronically signed and approved by: Fede Rico M.D. Radiologis
== END | disposition home or self-care (01) ==
LOC: RADMAMWWP 14:28
PROVIDERS: ATTEND Family Medicine
DX: Z12.31 Encounter for screening mammogram for malignant neoplasm of breast (principal); Z78.0 Asymptomatic menopausal state
CPT/HCPCS: 77063; 77067

== ENCOUNTER → 2024-01-23 | Outpatient (CLI) | payer MEDICARE, OTHER ==
--- NOTE | 2024-01-23 17:13 | MR ---
EXAMINATION TYPE: MR knee RT wo con DATE OF EXAM: 01/23/2024 COMPARISON: Outside radiograph 12/31/2022 HISTORY: 83-year-old female M25.561 TECHNIQUE: Multiplanar, multisequence imaging of the right knee is performed without IV contrast. FINDINGS: The ACL, PCL, MCL, and LCL complex are intact. There is a tiny undersurface oblique tear at the junction of the posterior horn and body of the media l meniscus. Mild superficial irregular cartilage loss throughout the medial compartment. Lateral meniscus shows a larger oblique tear involving the body of the meniscus. Mild irregular carti jannette thinning throughout the lateral compartment. Moderate diffuse thinning of articular cartilage along the medial patellar facet and mild along the l ateral patellar and trochlear facets. Extensor mechanism appears intact. Some inhomogeneous signal along the insertional fibers of the quad riceps tendon. Small knee joint effusion with a trace Tony's cyst. There is some fluid seen tracking along the pes anserinus. Normal popliteal artery anatomy and muscle bulk. No suspicious bone marrow replacement. IMPRESSION: 1. Oblique tear involving the body of the lateral meniscus. Tiny undersurface oblique tear at the zo ction of the posterior horn and body of the medial meniscus. 2. 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 3. Mild insertional quadriceps tendinosis. 4. Small knee joint effusion and a trace Tony's cyst. 5. Some fluid seen tracking along the pes anserinus; correlate for pes anserinus bursitis.
== END | disposition home or self-care (01) ==
LOC: RADMRIMAIN 12:07
PROVIDERS: ATTEND Orthopaedic Surgery
DX: M25.561 Pain in right knee

== ENCOUNTER → 2024-04-23 | Outpatient (CLI) | payer MEDICARE, OTHER ==
--- NOTE | 2024-04-23 11:07 | FL ---
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 All patient questions were ans wered prior to start of procedure. Multiple spot fluoroscopic images of the esophagus were obtained a fter the oral ingestion of effervescent crystals and liquid barium as the contrast agent. Fluoroscopic time:24 sec Fluoroscopic images:0 Radiographs taken: 72 DAP: NOT REPORTED [id number] FINDINGS: The esophagus demonstrates normal primary and secondary peristalsis. Minimal Tertiary contractions ar e seen with delayed emptying of the esophageal contents. Small hiatal hernia present. The esophageal mucosa is smooth without evidence of focal stricture, ulceration, or abnormal outpouching. No gastro esophageal reflux disease was identified IMPRESSION: 1. Minimal Esophageal dysmotility. 2. Small hiatal hernia. [facility], , 04/23/2024 11:05 AM
== END | disposition home or self-care (01) ==
LOC: RADFLMAIN 09:11
PROVIDERS: ATTEND Thoracic Surgery (Cardiothoracic Vascular Surgery)
DX: K22.4 Dyskinesia of esophagus (principal); K44.9 Diaphragmatic hernia without obstruction or gangrene
CPT/HCPCS: 74220

== ENCOUNTER → 2024-09-25 | Outpatient (CLI) | payer MEDICARE, OTHER ==
--- NOTE | 2024-09-25 16:06 | MR ---
EXAMINATION TYPE: MR lumbar spine wo con DATE OF EXAM: 09/25/2024 COMPARISON: CT lumbar spine February 02, 2021 HISTORY: Lower back pain, BLE radiculopathy. TECHNIQUE: Multiplanar, multisequence imaging of the lumbar spine is performed without IV contrast. FINDINGS: Persistent dextroconvex scoliosis centered at L2 level. Stable slight grade 1 retrolisthesi s L1 on L2 and L2 on L3. Sagittal images of the lumbar spine show vertebral body heights to remain sa tisfactory. Susceptibility artifact from posterior interpedicular rods and screws and artificial disc material at L4-L5 levels bilaterally is redemonstrated. The intervertebral discs demonstrate multile debbie disc desiccation and disc space narrowing. The conus medullaris is normal in position and signal ending at superior L1 level. Some heterogeneity of bone marrow signal intensity is seen. Axial images at T12-L1 level show mild broad disc bulge and mild facet arthropathy bilaterally. There is minimal effacement of the anterior sac. Axial images at the L1-L2 level show spondylitic listhesis and moderate broad disc bulge effacing ant erior sac and [id number] facet arthropathy bilaterally. There is mild effacement of the left la teral thecal sac. Axial images at L2-L3 level shows spondylosis and posterior moderate broad disc bulge effacing the an terior thecal sac. There is mild/moderate left greater than right facet arthropathy and ligamentum fl avum hypertrophy effacing the left lateral thecal sac. There is [id number] left-sided neural fo raminal narrowing. Axial images at the L3-L4 level show mild broad disc bulge. There is artifact from surgical change se en. There is moderate facet arthropathy bilaterally. There is mild to moderate right-sided neural for aminal narrowing. Axial images at L4-L5 level show artifact from disc material and fusion hardware. There is moderate f acet arthropathy. Bilateral neural foramina are patent. Axial images at the L5-S1 level appear within normal limits. IMPRESSION: Postsurgical change L4-L5 level is redemonstrated. Scoliosis with multilevel spondylolist hesis and degenerative changes are present as detailed above. [facility], , 09/25/2024 4:04 PM
== END | disposition home or self-care (01) ==
LOC: RADMRIMAIN 12:39
PROVIDERS: ATTEND Orthopaedic Surgery
DX: M48.061 Spinal stenosis, lumbar region without neurogenic claudication (principal); M47.26 Other spondylosis with radiculopathy, lumbar region; M43.26 Fusion of spine, lumbar region; M43.16 Spondylolisthesis, lumbar region; Z98.890 Other specified postprocedural states; M41.86 Other forms of scoliosis, lumbar region
CPT/HCPCS: 72148